=== PATIENT | female | born 1955 | race African-American/Black ===

== ENCOUNTER 2018-07-16 11:53 | Inpatient (IN) | payer MEDICARE ==
[~2018-07-16] VITALS: Ht 172.7 cm; Wt 117.9 kg
[2018-07-16 15:00] VITALS: BP 221/97
[2018-07-16] MEDS ORDERED: ROXICODONE5 MG ORAL (16:40)
[2018-07-16] MEDS ORDERED: DOCUSATE SODIU100 MG ORAL (16:40)
[2018-07-16] MEDS ORDERED: RESTORIL7.5 MG ORAL (16:40)
[2018-07-16] MEDS ORDERED: CATAPRES0.1 MG ORAL (16:40)
[2018-07-16] MEDS ORDERED: TRAMADOL HCL100 M2 ORAL (16:40)
[2018-07-16] MEDS ORDERED: FAMOTIDINE40 MG ORAL (16:40)
--- NOTE | 2018-07-16 16:59 | Consultation ---
Consult Note Consult Note transfered from [facility] Assessment/Plan Encephalopathy ?UTI ? Line sepsis, Picc line left upper arm stage 4 decub Obese Anemia HTN ?DM recent right knee surgery PCN Allergy IV Fluid Labs in am IV vanco IV Levaquin pain meds hold mind altering meds: Soma [place] Robaxin BP control check HgbA1c and TSH and lipids Per orders ID eval # [id number] Roe Mcghee MD Jul 16, 2018 16:59
[2018-07-16] MEDS ORDERED: Vancomycin 1 GM in D5W 275 ML IVPB SCH (18:00)
[2018-07-16] MEDS ORDERED: D5NS w/KCl 40mEq 1000ml 1,000 ML IV SCH (18:00)
[2018-07-16] MEDS: Docusate 100mg cap ORAL SCH (18:56)
[2018-07-16] MEDS ORDERED: Meropenem 1gm in NS 55ml IVPB SCH (19:30)
[2018-07-16] MEDS: HYDROmorphone 1mg/ml Carpuject IVP PRN (20:37)
[2018-07-16 20:58] VITALS: BP 198/104
[2018-07-16 22:00] VITALS: BP 174/85
--- NOTE | 2018-07-16 22:31 | Infectious Diseases Prog Note ---
Assessment/Plan Problems: (1) HCAP (healthcare-associated pneumonia) Assessment & Plan: with B/L basal infiltrates , rule out aspiration, will send sputum culture and start meropenem empirically , continue vancomycin to cover for possible MRSA, pending cultures (2) Pressure injury of sacral region, stage 4 Assessment & Plan: rule out underlying osteomyelitis, will order MRI of the sacrum , ESR and CRP , recommend surgical eval for possible skin flap in the future if no osteomyelitis (3) Sepsis Assessment & Plan: was on cefazolin for four weeks before , due to bacteremia , will start meropenem , and continue vancomycin empiric coverage for now . will order blood cultures x2 to confirm (4) Altered mental status Assessment & Plan: due to the above, continue antibiotics and hydration , monitor neuro status (5) UTI (urinary tract infection) Assessment & Plan: will start meropenem , pending urine culture results Subjective Allergies: Coded Allergies: PENICILLINS (Verified Allergy, Intermediate, 07/16/18) Objective Vital Signs Last 24 Hour Vital Signs Date Time Temp Pulse Resp B/P (MAP) Pulse Ox O2 Delivery O2 Flow Rate FiO2 07/16/18 21:07 97.5 07/16/18 21:00 99.1 78 20 100 99.1 07/16/18 20:37 97.5 07/16/18 20:37 198/104 07/16/18 18:56 81 221/97 07/16/18 15:44 Room Air 07/16/18 15:00 97.5 81 19 221/97 (138) 97 97.5 Height (Feet): 5 Height (Inches): 7.00 Weight (Pounds): 198 Laboratory Tests Test 07/16/18 17:30 C-Reactive Protein, Quantitative 7.4 mg/dL (0.00-0.90) H Current Medications Medications (Trade) Dose Ordered Sig/Dave Route PRN Reason Start Time Stop Time Status Last Admin Dose Admin Amlodipine Besylate (Norvasc) 10 mg DAILY ORAL 07/17/18 09:00 08/16/18 08:59 Clonidine HCl (Catapres Tab) 0.1 mg Q4H PRN ORAL bp over 160 syst 07/16/18 17:15 08/15/18 17:14 07/16/18 20:37 Dextrose/ Electrolytes 1,000 ml @ 50 mls/hr Q20H IV 07/16/18 18:00 08/15/18 17:59 07/16/18 18:58 Docusate Sodium (Colace) 100 mg THREE TIMES A DAY ORAL 07/16/18 18:00 08/15/18 17:59 07/16/18 18:56 Enoxaparin Sodium (Lovenox) 40 mg DAILY SUBQ 07/17/18 09:00 08/16/18 08:59 UNV Hydromorphone HCl (Dilaudid) 0.5 mg Q4H PRN IVP For Pain 07/16/18 17:15 07/23/18 17:14 07/16/18 20:37 Meropenem 1 gm/ Sodium Chloride 55 ml @ 110 mls/hr ONCE IVPB 07/16/18 19:30 07/16/18 23:59 07/16/18 20:45 Meropenem 1 gm/ Sodium Chloride 55 ml @ 110 mls/hr Q8HR IVPB 07/16/18 18:15 07/21/18 18:14 UNV Ondansetron HCl (Zofran) 4 mg Q6H PRN IVP Nausea & Vomiting 07/16/18 17:15 08/15/18 17:14 Pantoprazole (Protonix) 40 mg DAILY IVP 07/17/18 09:00 08/16/18 08:59 Temazepam (Restoril) 7.5 mg HSPRN PRN ORAL Insomnia 07/16/18 17:15 07/23/18 17:14 Vancomycin HCl 1 gm/Dextrose 275 ml @ 183.708 mls/hr ONCE IVPB 07/16/18 18:00 07/16/18 23:59 07/16/18 18:56 Jason Kong M.D. Jul 16, 2018 22:31
[2018-07-17] MEDS ORDERED: Dyna-Hex 2% Top Sol 2oz TOPIC SCH (00:45)
[2018-07-17] MEDS: HYDROmorphone 1mg/ml Carpuject IVP PRN ×3 (01:04→21:39)
[2018-07-17 04:00] VITALS: BP 134/62
[2018-07-17 05:53] LABS: BASOPHILS % (AUTO) 0.5 % (0.0-2.0); EOSINOPHILS % (AUTO) 1.9 % (0.0-3.0); HEMATOCRIT 30.2 % (37.0-47.0); HEMOGLOBIN 9.9 G/DL (12.0-16.0); LYMPHOCYTES % (AUTO) 21.5 % (20.0-45.0); MEAN CORPUSCULAR VOLUME 87 FL (80-99); MONOCYTES % (AUTO) 10.7 % (1.0-10.0); NEUTROPHILS % (AUTO) 65.5 % (45.0-75.0); PLATELET COUNT 321 K/UL (150-450); RED BLOOD COUNT 3.45 M/UL (4.20-5.40); RED CELL DISTRIBUTION WIDTH 13.7 % (11.6-14.8); WHITE BLOOD COUNT 8.8 K/UL (4.8-10.8)
[2018-07-17 06:14] LABS: APPEARANCE,URINE CLEAR; BILIRUBIN, URINE NEGATIVE (NEGATIVE); GLUCOSE, URINE (UA) NEGATIVE (NEGATIVE); KETONES,URINE 2+ (NEGATIVE); LEUKOCYTE ESTERASE ,URINE NEGATIVE (NEGATIVE); NITRITE,URINE NEGATIVE (NEGATIVE); PH,URINE 7 (4.5-8.0); PROTEIN,URINE 2+ (NEGATIVE); UROBILINOGEN,URINE NORMAL MG/DL (0.0-1.0)
[2018-07-17 06:15] LABS: COLOR,URINE YELLOW
[2018-07-17 06:23] LABS: ALANINE AMINOTRANSFERASE 7 U/L (12-78); ALBUMIN 2.2 G/DL (3.4-5.0); ALBUMIN/GLOBULIN RATIO 0.5 (1.0-2.7); ALKALINE PHOSPHATASE 102 U/L (46-116); ANION GAP 6 mmol/L (5-15); ASPARTATE AMINO TRANSFERASE 10 U/L (15-37); BILIRUBIN,TOTAL 0.3 MG/DL (0.2-1.0); CALCIUM 10.8 MG/DL (8.5-10.1); CARBON DIOXIDE 30 MMOL/L (21-32); CHLORIDE 109 MMOL/L (98-107); CHOLESTEROL 216 MG/DL (< 200); CREATININE 0.7 MG/DL (0.55-1.30); FERRITIN 445 NG/ML (8-388); GAMMA GLUTAMYL TRANSPEPTIDASE 34 U/L (5-85); HDL CHOLESTEROL 44 MG/DL (40-60); PHOSPHORUS 2.5 MG/DL (2.5-4.9); SODIUM 145 MMOL/L (136-145); TRIGLYCERIDES 82 MG/DL (30-150)
[2018-07-17 06:33] LABS: % IRON SATURATION 24 % (15-50); IRON 38 ug/dL (50-175); TOTAL IRON BINDING CAPACITY 161 ug/dL (250-450)
[2018-07-17 06:38] LABS: BLOOD UREA NITROGEN 9 mg/dL (7-18)
[2018-07-17] MEDS: Pantoprazole Inj IVP SCH (08:33)
[2018-07-17] MEDS: Docusate 100mg cap ORAL SCH ×3 (08:33→17:26)
[2018-07-17 09:00] VITALS: BP 154/83
[2018-07-17] MEDS ORDERED: Lactulose 20gm/30ml UDC ORAL SCH (09:00)
--- NOTE | 2018-07-17 10:09 | Nephrology Progress Note ---
Assessment/Plan Problem List: (1) Sepsis (2) Pressure injury of sacral region, stage 4 (3) Acute encephalopathy (4) Electrolyte abnormality (5) Anemia of chronic disease (6) Proteinuria Assessment Encephalopathy Electrolyte abnormalities Proteinuria ? Line sepsis, Picc line left upper arm stage 4 decub Basal Atx: Pneumonia Obese Anemia HTN ?DM recent right knee surgery PCN Allergy I Plan IV Fluid mag and K supplement on Meropenem per ID pain meds hold mind altering meds: Soma [place] Robaxin BP control HgbA1c and TSH and lipids results noted Per orders ID eval appreciated St eval: Rec PO to be started Subjective ROS Limited/Unobtainable: No Constitutional: Reports: malaise, other - less confused Objective Objective Last 24 Hour Vital Signs Date Time Temp Pulse Resp B/P (MAP) Pulse Ox O2 Delivery O2 Flow Rate FiO2 07/17/18 09:00 97.8 96 21 154/83 (106) 97 97.8 07/17/18 08:36 96 156/85 07/17/18 04:00 97.9 69 20 134/62 (86) 98 97.9 07/17/18 01:34 97.5 07/17/18 01:04 97.5 07/17/18 00:38 176/84 07/16/18 23:28 Room Air 07/16/18 22:00 77 174/85 (114) 07/16/18 21:00 99.1 78 20 100 99.1 07/16/18 20:58 198/104 (135) 07/16/18 20:37 97.5 07/16/18 20:37 198/104 07/16/18 18:56 81 221/97 07/16/18 15:44 Room Air 07/16/18 15:00 97.5 81 19 221/97 (138) 97 97.5 Intake and Output 07/16/18 07/17/18 19:00 07:00 Intake Total 830.000 ml Balance 830.000 ml Intake IV Total 830.000 ml # Voids 3 Laboratory Tests 07/16/18 17:30: C-Reactive Protein, Quantitative 7.4H 07/17/18 02:40: Urine Color Yellow, Urine Appearance Clear, Urine pH 7, Urine Specific [place] 1.015, Urine Protein 2+H, Urine Glucose (UA) Negative, Urine Ketones 2+H, Urine Blood Negative, Urine Nitrite Negative, Urine Bilirubin Negative, Urine Urobilinogen Normal, Urine Leukocyte Esterase Negative, Urine RBC 2-4H, Urine WBC 2-4, Urine Squamous Epithelial Cells Occasional, Urine Amorphous Sediment FewH, Urine Bacteria Few 07/17/18 05:00: White Blood Count 8.8, Red Blood Count 3.45L, Hemoglobin 9.9L, Hematocrit 30.2L , Mean Corpuscular Volume 87, Mean Corpuscular Hemoglobin 28.8, Mean Corpuscular Hemoglobin Concent 32.9, Red Cell Distribution Width 13.7, Platelet Count 321, Mean Platelet Volume 6.4L, Neutrophils (%) (Auto) 65.5, Lymphocytes ( %) (Auto) 21.5, Monocytes (%) (Auto) 10.7H, Eosinophils (%) (Auto) 1.9, Basophils (%) (Auto) 0.5, Sodium Level 145, Potassium Level 3.0L, Chloride Level 109H, Carbon Dioxide Level 30, Anion Gap 6, Blood Urea Nitrogen 9, Creatinine 0.7, Estimat Glomerular Filtration Rate > 60, Glucose Level 117H, Hemoglobin A1c 6.0, Uric Acid 4.3, Calcium Level 10.8H, Phosphorus Level 2.5, Magnesium Level 1.5L, Iron Level 38L, Total Iron Binding Capacity 161L, Percent Iron Saturation 24, Unsaturated Iron Binding 123, Ferritin 445H, Total Bilirubin 0.3, Gamma Glutamyl Transpeptidase 34, Aspartate Amino Transf (AST/ SGOT) 10L, Alanine Aminotransferase (ALT/SGPT) 7L, Alkaline Phosphatase 102, Pro -B-Type Natriuretic Peptide 223H, Total Protein 6.9, Albumin 2.2L, Globulin 4.7 , Albumin/Globulin Ratio 0.5L, Triglycerides Level 82, Cholesterol Level 216H, LDL Cholesterol 143H, HDL Cholesterol 44, Cholesterol/HDL Ratio 4.9H, Vitamin B12 Level 1113H, Folate 3.5L, Thyroid Stimulating Hormone (TSH) 3.292 Height (Feet): 5 Height (Inches): 7.00 Weight (Pounds): 198 General Appearance: no apparent distress, confused - but less than yesterday Cardiovascular: tachycardia Respiratory/Chest: decreased breath sounds Abdomen: distended Roe Mcghee MD Jul 17, 2018 10:09
[2018-07-17] MEDS: D5 1/2NS 1,000 ML IV SCH ×2 (10:51→21:50)
[2018-07-17 11:42] VITALS: BP 154/88
--- NOTE | 2018-07-17 12:03 | Consultation ---
History of Present Illness General Date patient seen: Jul 17, 2018 Reason for Consultation: Sepsis; stage IV Sacral wound Present Illness HPI 62 year old female with multiple medical comorbidities presented with altered mental status and admitted for care and management. Sepsis with etiology work up being performed. Upon admission noted to have sacral stage IV wound and right lower extremity prior surgical wound with sutures. Surgery called to evaluate and assist with care. patient seen, chart reviewed, patient examined. Allergies: Coded Allergies: PENICILLINS (Verified Allergy, Intermediate, 07/16/18) Medication History Scheduled Docusate Sodium* (Docusate Sodium*), 100 MG ORAL TWICE A DAY, (Reported) Famotidine (Famotidine), 40 MG ORAL EVERY 12 HOURS, (Reported) Temazepam* (Restoril*), 7.5 MG ORAL BEDTIME, (Reported) Scheduled PRN Clonidine Hcl* (Catapres*), 0.1 MG ORAL EVERY 6 HOURS PRN for For High Blood Pressure, (Reported) Oxycodone HCl (Oxycodone HCl), 5 MG ORAL Q4H PRN for For Pain, (Reported) Tramadol Hcl (Tramadol Hcl), 50 MG ORAL EVERY 6 HOURS PRN for Pain Scale (6-10), (Reported) Patient History History Provided By: Medical Record, PMD Healthcare decision maker N Resuscitation status Full Code Advanced Directive on File Past Medical/Surgical History Past Medical/Surgical History: (1) Pressure ulcer (2) Sepsis (3) Altered mental status (4) HCAP (healthcare-associated pneumonia) (5) Catheter-associated urinary tract infection (6) Pressure injury of sacral region, stage 4 Review of Systems All Other Systems: negative except mentioned in HPI Physical Exam General Appearance: no apparent distress Lines, tubes and drains: other HEENT: atraumatic Neck: normal inspection Respiratory/Chest: normal breath sounds, no respiratory distress, no accessory muscle use Cardiovascular/Chest: normal rate, regular rhythm Abdomen: normal bowel sounds, soft, no organomegaly, no mass Extremities: normal inspection, other Skin Exam: normal pigmentation, warm/dry Neurologic: alert Last 24 Hour Vital Signs Date Time Temp Pulse Resp B/P (MAP) Pulse Ox O2 Delivery O2 Flow Rate FiO2 07/17/18 11:14 97.8 07/17/18 09:00 97.8 96 21 154/83 (106) 97 97.8 07/17/18 08:36 96 156/85 07/17/18 04:00 97.9 69 20 134/62 (86) 98 97.9 07/17/18 01:34 97.5 07/17/18 01:04 97.5 07/17/18 00:38 176/84 07/16/18 23:28 Room Air 07/16/18 22:00 77 174/85 (114) 07/16/18 21:00 99.1 78 20 100 99.1 07/16/18 20:58 198/104 (135) 07/16/18 20:37 97.5 07/16/18 20:37 198/104 07/16/18 18:56 81 221/97 07/16/18 15:44 Room Air 07/16/18 15:00 97.5 81 19 221/97 (138) 97 97.5 Intake and Output 07/16/18 07/17/18 19:00 07:00 Intake Total 830.000 ml Balance 830.000 ml Intake IV Total 830.000 ml # Voids 3 Laboratory Tests Test 07/16/18 17:30 07/17/18 02:40 07/17/18 05:00 C-Reactive Protein, Quantitative 7.4 mg/dL (0.00-0.90) H Urine Color Yellow Urine Appearance Clear Urine pH 7 (4.5-8.0) Urine Specific [place] 1.015 (1.005-1.035) Urine Protein 2+ (NEGATIVE) H Urine Glucose (UA) Negative (NEGATIVE) Urine Ketones 2+ (NEGATIVE) H Urine Blood Negative (NEGATIVE) Urine Nitrite Negative (NEGATIVE) Urine Bilirubin Negative (NEGATIVE) Urine Urobilinogen Normal MG/DL (0.0-1.0) Urine Leukocyte Esterase Negative (NEGATIVE) Urine RBC 2-4 /HPF (0 - 2) H Urine WBC 2-4 /HPF (0 - 2) Urine Squamous Epithelial Cells Occasional /LPF Urine Amorphous Sediment Few /LPF (NONE) H Urine Bacteria Few /HPF (NONE) White Blood Count 8.8 K/UL (4.8-10.8) Red Blood Count 3.45 M/UL (4.20-5.40) L Hemoglobin 9.9 G/DL (12.0-16.0) L Hematocrit 30.2 % (37.0-47.0) L Mean Corpuscular Volume 87 FL (80-99) Mean Corpuscular Hemoglobin 28.8 PG (27.0-31.0) Mean Corpuscular Hemoglobin Concent 32.9 G/DL (32.0-36.0) Red Cell Distribution Width 13.7 % (11.6-14.8) Platelet Count 321 K/UL (150-450) Mean Platelet Volume 6.4 FL (6.5-10.1) L Neutrophils (%) (Auto) 65.5 % (45.0-75.0) Lymphocytes (%) (Auto) 21.5 % (20.0-45.0) Monocytes (%) (Auto) 10.7 % (1.0-10.0) H Eosinophils (%) (Auto) 1.9 % (0.0-3.0) Basophils (%) (Auto) 0.5 % (0.0-2.0) Sodium Level 145 MMOL/L (136-145) Potassium Level 3.0 MMOL/L (3.5-5.1) L Chloride Level 109 MMOL/L (98-107) H Carbon Dioxide Level 30 MMOL/L (21-32) Anion Gap 6 mmol/L (5-15) Blood Urea Nitrogen 9 mg/dL (7-18) Creatinine 0.7 MG/DL (0.55-1.30) Estimat Glomerular Filtration Rate > 60 mL/min (>60) Glucose Level 117 MG/DL (74-106) H Hemoglobin A1c 6.0 % (4.3-6.0) Uric Acid 4.3 MG/DL (2.6-7.2) Calcium Level 10.8 MG/DL (8.5-10.1) H Phosphorus Level 2.5 MG/DL (2.5-4.9) Magnesium Level 1.5 MG/DL (1.8-2.4) L Iron Level 38 ug/dL (50-175) L Total Iron Binding Capacity 161 ug/dL (250-450) L Percent Iron Saturation 24 % (15-50) Unsaturated Iron Binding 123 ug/dL (112-346) Ferritin 445 NG/ML (8-388) H Total Bilirubin 0.3 MG/DL (0.2-1.0) Gamma Glutamyl Transpeptidase 34 U/L (5-85) Aspartate Amino Transf (AST/SGOT) 10 U/L (15-37) L Alanine Aminotransferase (ALT/SGPT) 7 U/L (12-78) L Alkaline Phosphatase 102 U/L (46-116) Pro-B-Type Natriuretic Peptide 223 pg/mL (0-125) H Total Protein 6.9 G/DL (6.4-8.2) Albumin 2.2 G/DL (3.4-5.0) L Globulin 4.7 g/dL Albumin/Globulin Ratio 0.5 (1.0-2.7) L Triglycerides Level 82 MG/DL (30-150) Cholesterol Level 216 MG/DL (< 200) H LDL Cholesterol 143 mg/dL (<100) H HDL Cholesterol 44 MG/DL (40-60) Cholesterol/HDL Ratio 4.9 (3.3-4.4) H Vitamin B12 Level 1113 PG/ML (193-986) H Folate 3.5 NG/ML (8.6-58.9) L Thyroid Stimulating Hormone (TSH) 3.292 uiU/mL (0.358-3.740) Height (Feet): 5 Height (Inches): 7.00 Weight (Pounds): 198 Medications Current Medications Medications (Trade) Dose Ordered Sig/Dave Route PRN Reason Start Time Stop Time Status Last Admin Dose Admin Albuterol Sulfate (Proventil) 2.5 mg TIDRT HHN 07/17/18 13:00 07/22/18 12:59 Amlodipine Besylate (Norvasc) 10 mg DAILY ORAL 07/17/18 09:00 08/16/18 08:59 07/17/18 08:36 Chlorhexidine Gluconate (Mila-Hex 2%) 1 applic DAILY@2000 TOPIC 07/17/18 20:00 08/16/18 19:59 Clonidine HCl (Catapres Tab) 0.1 mg Q4H PRN ORAL bp over 160 syst 07/16/18 17:15 08/15/18 17:14 07/17/18 00:38 Dextrose/Sodium Chloride 1,000 ml @ 75 mls/hr [id number] IV 07/17/18 08:30 08/16/18 08:29 07/17/18 10:51 Docusate Sodium (Colace) 100 mg THREE TIMES A DAY ORAL 9/13/18 18:00 08/15/18 17:59 07/17/18 08:33 Enoxaparin Sodium (Lovenox) 40 mg DAILY SUBQ 07/17/18 09:00 08/16/18 08:59 UNV Folic Acid (Folate) 2 mg DAILY ORAL 07/17/18 09:00 08/16/18 08:59 07/17/18 08:33 Hydromorphone HCl (Dilaudid) 0.5 mg Q4H PRN IVP For Pain 07/16/18 17:15 07/23/18 17:14 07/17/18 11:14 Meropenem 1 gm/ Sodium Chloride 55 ml @ 110 mls/hr Q8HR IVPB 07/16/18 18:15 07/21/18 18:14 UNV Ondansetron HCl (Zofran) 4 mg Q6H PRN IVP Nausea & Vomiting 07/16/18 17:15 08/15/18 17:14 Pantoprazole (Protonix) 40 mg DAILY IVP 07/17/18 09:00 08/16/18 08:59 07/17/18 08:33 Potassium Chloride 100 ml @ 100 mls/hr Q1HR IVPB 07/17/18 09:00 07/17/18 12:59 07/17/18 10:57 Silver Nitrate (Silver Nitrate Applicators) 1 applic DAILY TOPIC 07/17/18 10:45 07/20/18 10:44 Temazepam (Restoril) 7.5 mg HSPRN PRN ORAL Insomnia 07/16/18 17:15 07/23/18 17:14 Assessment/Plan Problem List: (1) Pressure injury of sacral region, stage 4 Assessment & Plan: 62F with stage IV full thickness pressure injury to sacral area. (L)0.4cm x(W)0.9cm x (D)0.6cm . (+)Epibole ,(+) maceration. Minimal sanguineous exudate noted. Periwound scarring with skin hyperpigmentation. no Odor Per history obtained from pt wound is a historical stage four pressure injury x15 years with recurrent openings over the years. Pt stated she has had NPWT therapy in the past for closure and also skin graft/ flap. Right knee immobilizer with prior surgical sutures noted R knee and incision is well approximated,clean and dry Wounds present on admission. Seems to have good care prior and currently stable. -No acute surgical intervention indicated. -Cleanse sacral wound with Saline.Pat dry.Apply Cavilon wipes to borders and periwound .Apply Triad to wound and cover with Biatain drsg. -Surface support mat on bed . -Encourage and assist pt to reposition side to side at least every 2hours as tolerated. thank you for this consultation. will follow with recs. ICD Codes: L89.154 - Pressure ulcer of sacral region, stage 4 SNOMED: [id number], [id number] Eliot Baig Jul 17, 2018 12:03
[2018-07-17] MEDS: Albuterol ud Inhalation HHN SCH ×2 (13:00→19:44)
[2018-07-17] MEDS: Silver Nitrate Stick TOPIC SCH (13:04)
[2018-07-17 15:28] VITALS: BP 170/91
[2018-07-17] MEDS ORDERED: Vancomycin 1500mg IVPB SCH (15:30)
[2018-07-17] MEDS: Meropenem 1 GM in NS 55 ML IVPB SCH ×2 (15:32→21:06)
[2018-07-17] MEDS: Enoxaparin 40mg Inj SUBQ SCH (15:33)
--- NOTE | 2018-07-17 15:38 | Diagnostic Imaging Report ---
Indication: Cough, chest pain Technique: One view of the chest Comparison: none Findings: Heart is enlarged. There is mild interstitial congestion. No focal airspace consolidation. Pleural spaces are clear Impression: Cardiomegaly. Bilateral interstitial congestion, likely mild congestive heart failure
--- NOTE | 2018-07-17 16:02 | Diagnostic Imaging Report ---
Indication: Chronic stage IV wound near sacrum Technique: Sagittal T1 fast spin echo and STIR, axial T1, axial STIR images obtained through the sacrum. Patient unable to tolerate further imaging Comparison: none Findings: Exam is limited as only limited number of sequences are available. There is some edema of the subcutaneous fat of the upper buttock region, in particular surrounding the intergluteal fold. No abnormal marrow signal to suggest acute osteomyelitis is demonstrated. There is degenerative spondylosis of the lower lumbar spine, in particular at L4-5, possibly resulting in significant spinal stenosis at this level. The rectum is distended with stool Impression: No evidence of acute osteomyelitis Evidence of soft tissue edema, consistent with stated clinical history Degenerative disc disease at L4-5, possibly resulting in significant spinal stenosis Possible mild rectal fecal impaction
[2018-07-17 20:00] VITALS: BP 171/86
[2018-07-17] MEDS: Dyna-Hex 2% Top Sol 2oz TOPIC SCH (21:06)
--- NOTE | 2018-07-17 22:30 | Consultation ---
DATE OF CONSULTATION: 07/17/2018 INFECTIOUS DISEASE CONSULTATION REQUESTING PHYSICIAN: Roe Mcghee M.D. REASON FOR CONSULTATION: Bilateral pneumonia, sepsis, urinary tract infection, and chronic sacral pressure wound with possible underlying osteomyelitis. Recommendation for antibiotics treatment. HISTORY OF PRESENT ILLNESS: Ms. Benitez Luu is a 62-year-old female with past medical history of stage IV sacral wound. She had it for almost 15 years after prolonged hospital stay, presented from [facility] to [facility] with altered mental status and sepsis. The patient was found to have pneumonia on lung image and urine tract infection. She also had a chronic sacral pressure wound stage IV with right lower extremity prior surgical wound with sutures, so Infectious Disease consultation was requested for antibiotics treatment and further management of her sepsis, pneumonia, urinary tract infection, and sacral pressure wound with possible underlying osteomyelitis. As per patient, she had a chronic pain in the sacral area, which never went away. Her sacral pressure wound has been there for almost 15 years. It became smaller, but still deep all the way down that the bone can be seen through. No significant drainage or foul smell as per the patient. She denied any fever or chills. She does not recall why she was admitted to [facility] to start with. REVIEW OF SYSTEMS: A 14-point of system reviewed were all negative apart from the one I mentioned above in my History and Physical. PAST MEDICAL HISTORY: Significant for sacral pressure wound stage IV, hypertension, and chronic pain. PAST SURGICAL HISTORY: Not on record. FAMILY HISTORY: Negative and noncontributory. SOCIAL HISTORY: The patient lives at home. No recent drugs, tobacco, or alcohol. ALLERGIES: She is allergic to penicillin unclear what kind of reaction. MEDICATIONS: She is on vancomycin and levofloxacin. For the rest of her medications, please refer to MAR. LABORATORIES: Not available currently. The patient just got transferred. IMAGING: None on record here yet. PHYSICAL EXAMINATION: VITAL SIGNS: Temperature 97.5, pulse 81, respirations 19, blood pressure 221/97, pulse ox 97% on room air. GENERAL: Middle-aged female, obese. Lying in bed, awake, alert, not in acute distress. HEENT: Normocephalic and atraumatic. Pupils reactive to light equally. Moist oral mucosa. No exudate. NECK: Supple. No lymphadenopathy. CARDIOVASCULAR: Regular rate and rhythm. No murmur or gallop. LUNGS EXAM: She had diminished breathing sounds at the bases with crackles. Normal breathing effort. No rhonchi. No wheezing. ABDOMEN: Soft, obese, nontender, and nondistended. Normal bowel sounds. No hepatosplenomegaly or ascites. EXTREMITIES: Trace edema. No cyanosis. The thigh surgical wound with suture. Skin, no rash. No hives. Sacral pressure wound stage IV. ASSESSMENT AND RECOMMENDATION: 1. Healthcare-acquired pneumonia with bilateral basal infiltrates, rule out aspiration. We will send sputum culture if she produces any. We will start meropenem empiric coverage. Continue vancomycin to cover for possible MRSA pending culture results. 2. Pressure injury of the sacral region stage IV, rule out underlying osteomyelitis. We will order MRI of the sacrum, sedimentation rate, and C-reactive protein. Recommend surgical evaluation for possible skin flap in the future . 3. Sepsis due to the above. We will start meropenem and continue vancomycin empiric coverage. We will order blood culture x2. 4. Altered mental status due to the above. Continue antibiotics and hydration. Monitor neuro status. Consult neuro if no improvement. 5. Urinary tract infection. We will start meropenem pending urine culture results. Continue Glass care. Discontinue as soon as possible. Thank you for the consult. ID will continue to follow. Jason Kong M.D. DR: OREN JOB#: [id number] CC:
--- NOTE | 2018-07-17 23:45 | History and Physical Report ---
DATE OF ADMISSION: 07/16/2018 The patient was seen in the afternoon of July 16, 2018, in room 403. HISTORY OF PRESENT ILLNESS: The patient is a 62-year-old female, who apparently has been under the care of Dr. Talon Uriostegui, and she was living in a mcc and she was sent for evaluation of altered level of consciousness to [facility]. After initial evaluation in the emergency room, the patient was initially diagnosed with an underlying infection, possibly UTI and subsequently transferred here to [place] for further management. The patient is very confused and cannot give any history. However according to the records available, the patient had a recent right knee surgery a few weeks ago for which she was receiving Ancef for related infection. The patient has a PICC line in the left upper arm. The patient is obese and appears to have history of hypertension. PHYSICAL EXAMINATION: VITAL SIGNS: When seen yesterday, the blood pressure was 221/97, temperature 97.5, pulse rate 81, and respiratory rate 19. GENERAL: The patient was very confused and asking for her mother. HEENT: Head, normocephalic. Sclerae not icteric. NECK: No thyromegaly. LUNGS: Decreased breath sounds over the bases. HEART: Distant, regular with a rate of 81. ABDOMEN: Very obese. EXTREMITIES: Over the left upper arm, a PICC line. Right knee, scar of the surgery on the right knee. LABORATORY DATA: Laboratory data all available from [place], which indicates hypokalemia and anemia for the patient. No other laboratories available here at [place] as the patient just arrived. IMPRESSION: 1. A 62-year-old female with encephalopathy most likely underlying infection, which may be related to the line sepsis, pneumonia since the patient has basal atelectasis and/or UTI. The patient have electrolyte abnormalities in the form of significant hypokalemia. The patient have stage 4 decubitus over the lower back. The patient is obese. 2. Anemia. 3. Hypertension, out of control. 4. Diabetes mellitus. 5. Recent right knee surgery. 6. Penicillin allergy. PLAN: The patient will be kept NPO and off mind-altering medication. Meropenem has been started. IV evaluation will be called. Magnesium and potassium supplements, blood pressure control. We will check the laboratories for tomorrow morning. Anemia work up. ST evaluation and surgical evaluation of the low back decubitus. According to how the patient's condition evolves, we will make the proper changes in our future management. Roe Mcghee M.D. DR: PHOEBE JOB#: [id number] CC:
[2018-07-18] VITALS: BP 159/77
[2018-07-18] MEDS: HYDROmorphone 1mg/ml Carpuject IVP PRN ×3 (01:50→22:26)
[2018-07-18] MEDS ORDERED: Vancomycin 1250mg/D5W 250ml IVPB SCH (03:00)
[2018-07-18 04:00] VITALS: BP 136/63
[2018-07-18] MEDS: Meropenem 1 GM in NS 55 ML IVPB SCH (05:53)
[2018-07-18] MEDS: D5 1/2NS 1,000 ML IV SCH ×3 (06:30→22:27)
[2018-07-18] MEDS: Albuterol ud Inhalation HHN SCH ×3 (07:38→19:34)
[2018-07-18 08:00] VITALS: BP 147/76
[2018-07-18] MEDS: Pantoprazole Inj IVP SCH (08:27)
[2018-07-18] MEDS: Docusate 100mg cap ORAL SCH ×3 (08:28→17:11)
[2018-07-18] MEDS: Enoxaparin 40mg Inj SUBQ SCH (08:33)
--- NOTE | 2018-07-18 09:22 | General Surgery Progress Note ---
General Surgery-Progress Note Subjective Additional Comments no acute events. doing well. comfortable. Objective Last 24 Hour Vital Signs Date Time Temp Pulse Resp B/P (MAP) Pulse Ox O2 Delivery O2 Flow Rate FiO2 07/18/18 08:28 76 147/76 07/18/18 08:00 98.6 76 21 147/76 (99) 96 98.6 07/18/18 07:54 Room Air 07/18/18 07:46 70 16 100 Room Air 21 07/18/18 07:38 68 16 98 Room Air 21 07/18/18 04:00 98.6 70 18 136/63 (87) 96 98.6 07/18/18 00:00 98.7 75 20 159/77 (104) 95 98.7 07/17/18 21:00 Room Air 07/17/18 20:00 98.2 81 19 171/86 (114) 95 98.2 07/17/18 19:28 72 18 100 Room Air 21 07/17/18 19:21 36 07/17/18 19:21 78 18 100 Room Air 21 07/17/18 19:09 170/91 07/17/18 19:02 74 18 Room Air 21 07/17/18 15:28 98.6 83 20 170/91 (117) 97 98.6 07/17/18 11:44 98.2 07/17/18 11:42 98.2 73 21 154/88 (110) 95 98.2 07/17/18 11:14 97.8 I&O Intake and Output 07/17/18 07/18/18 19:00 07:00 Intake Total 1789 ml 960.000 ml Output Total 850 ml Balance 1789 ml 110.000 ml Intake Oral 720 ml IV Total 1069 ml 960.000 ml Output Urine Total 850 ml # Bowel Movements 1 Dressing: other Wound: other Drains: other Cardiovascular: RSR Respiratory: clear Abdomen: soft, flat, non-tender, present bowel sounds Extremities: no cyanosis Plan Problems: (1) Pressure injury of sacral region, stage 4 Assessment & Plan: 62F with stage IV full thickness pressure injury to sacral area. (L)0.4cm x(W)0.9cm x (D)0.6cm . (+)Epibole ,(+) maceration. Minimal sanguineous exudate noted. Periwound scarring with skin hyperpigmentation. no Odor Per history obtained from pt wound is a historical stage four pressure injury x15 years with recurrent openings over the years. Pt stated she has had NPWT therapy in the past for closure and also skin graft/ flap. Right knee immobilizer with prior surgical sutures noted R knee and incision is well approximated,clean and dry Wounds present on admission. Seems to have good care prior and currently stable. -No acute surgical intervention indicated. -Cleanse sacral wound with Saline.Pat dry.Apply Cavilon wipes to borders and periwound .Apply Triad to wound and cover with Biatain drsg. apply silver nitrate daily for 3 days. -Surface support mat on bed . -Encourage and assist pt to reposition side to side at least every 2hours as tolerated. -will plan to remove right leg surgical sutures tomorrow. thank you for this consultation. will follow with recs. Eliot Baig Jul 18, 2018 09:22
[2018-07-18] MEDS ORDERED: Fleet's Enema 133ml RECTAL SCH (09:45)
[2018-07-18] MEDS: Silver Nitrate Stick TOPIC SCH (09:58)
[2018-07-18] MEDS ORDERED: Tubing IV Secondary IV ONE (10:53)
[2018-07-18] MEDS ORDERED: D5 1/2NS 1000ml IV ONE (10:53)
[2018-07-18 12:00] VITALS: BP 144/80
[2018-07-18] MEDS ORDERED: Potassium Chloride 40 MEQ in Sodium Chloride 500ML 550 ML IVPB SCH (12:30)
--- NOTE | 2018-07-18 12:30 | Nephrology Progress Note ---
Assessment/Plan Problem List: (1) Sepsis (2) Pressure injury of sacral region, stage 4 (3) Acute encephalopathy (4) Electrolyte abnormality (5) Anemia of chronic disease (6) Proteinuria Assessment Encephalopathy clearing Electrolyte abnormalities Proteinuria ? Line sepsis, Picc line left upper arm stage 4 decub Basal Atx: Pneumonia Obese Anemia HTN ?DM recent right knee surgery PCN Allergy I Plan No labs today- IV Fluid mag and K supplement as needed on Meropenem per ID pain meds hold mind altering meds: Soma [place] Robaxin BP control HgbA1c and TSH and lipids results noted Per orders ID eval appreciated St eval: Rec PO to be started HHN Subjective ROS Limited/Unobtainable: No Constitutional: Reports: other - stronger Objective Objective Last 24 Hour Vital Signs Date Time Temp Pulse Resp B/P (MAP) Pulse Ox O2 Delivery O2 Flow Rate FiO2 07/18/18 12:00 98.4 74 18 144/80 (101) 96 98.4 07/18/18 08:28 76 147/76 07/18/18 08:00 98.6 76 21 147/76 (99) 96 98.6 07/18/18 07:54 Room Air 07/18/18 07:46 70 16 100 Room Air 21 07/18/18 07:38 68 16 98 Room Air 21 07/18/18 04:00 98.6 70 18 136/63 (87) 96 98.6 07/18/18 00:00 98.7 75 20 159/77 (104) 95 98.7 07/17/18 21:00 Room Air 07/17/18 20:00 98.2 81 19 171/86 (114) 95 98.2 07/17/18 19:28 72 18 100 Room Air 21 07/17/18 19:21 36 07/17/18 19:21 78 18 100 Room Air 21 07/17/18 19:09 170/91 07/17/18 19:02 74 18 Room Air 21 07/17/18 15:28 98.6 83 20 170/91 (117) 97 98.6 Intake and Output 07/17/18 07/18/18 19:00 07:00 Intake Total 1789 ml 960.000 ml Output Total 850 ml Balance 1789 ml 110.000 ml Intake Oral 720 ml IV Total 1069 ml 960.000 ml Output Urine Total 850 ml # Bowel Movements 1 Height (Feet): 5 Height (Inches): 8.00 Weight (Pounds): 260 General Appearance: other - mind more clear Cardiovascular: normal rate Respiratory/Chest: decreased breath sounds Abdomen: soft Extremities: other - surgical scar knee clean Roe Mcghee MD Jul 18, 2018 12:30
[2018-07-18] MEDS: Norco 5mg/325mg tab ORAL PRN ×2 (12:44→17:11)
--- NOTE | 2018-07-18 13:50 | Infectious Diseases Prog Note ---
Assessment/Plan Problems: (1) HCAP (healthcare-associated pneumonia) Assessment & Plan: with B/L interstitial infiltrates, on meropenem empirically , and vancomycin to cover for possible MRSA, unfortunately blood cultures was not done when I ordered it , neither urine culture . will stop vancomycin and meropenem and monitor clinically, will resume her cefazolin as planned before till 08/04/18 (2) Pressure injury of sacral region, stage 4 Assessment & Plan: with no evidence of underlying osteomyelitis or soft tissue abscess as per MRI of the sacrum , may benefit from skin flap in the future . continue local wound care as per hospital protocol . follow up with plastic surgery (3) Sepsis Assessment & Plan: due to the above, will start meropenem , and continue vancomycin empiric coverage . will order blood cultures x2 (4) Altered mental status Assessment & Plan: due to the above, improved with antibiotics and hydration, monitor neuro status (5) UTI (urinary tract infection) Assessment & Plan: S/P meropenem for three days , urine culture was not done . Subjective Constitutional: Reports: no symptoms HEENT: Reports: no symptoms Respiratory: Reports: no symptoms Breasts: Reports: no symptoms Cardiovascular: Reports: no symptoms Gastrointestinal/Abdominal: Reports: no symptoms Genitourinary: Reports: no symptoms Neurologic: Reports: no symptoms Psychiatric: Reports: no symptoms Skin: Reports: no symptoms Endocrine: Reports: no symptoms Hematologic: Reports: no symptoms Musculoskeletal: Reports: no symptoms Allergies: Coded Allergies: PENICILLINS (Verified Allergy, Intermediate, 07/16/18) Subjective she was lying in bed comfortable, getting nebulizer treatment, comfortable, no complaints Objective Vital Signs Last 24 Hour Vital Signs Date Time Temp Pulse Resp B/P (MAP) Pulse Ox O2 Delivery O2 Flow Rate FiO2 07/18/18 13:25 75 16 99 Room Air 21 07/18/18 13:16 72 16 97 Room Air 21 07/18/18 12:00 98.4 74 18 144/80 (101) 96 98.4 07/18/18 08:28 76 147/76 07/18/18 08:00 98.6 76 21 147/76 (99) 96 98.6 07/18/18 07:54 Room Air 07/18/18 07:46 70 16 100 Room Air 21 07/18/18 07:38 68 16 98 Room Air 21 07/18/18 04:00 98.6 70 18 136/63 (87) 96 98.6 07/18/18 00:00 98.7 75 20 159/77 (104) 95 98.7 07/17/18 21:00 Room Air 07/17/18 20:00 98.2 81 19 171/86 (114) 95 98.2 07/17/18 19:28 72 18 100 Room Air 21 07/17/18 19:21 36 07/17/18 19:21 78 18 100 Room Air 21 07/17/18 19:09 170/91 07/17/18 19:02 74 18 Room Air 21 07/17/18 15:28 98.6 83 20 170/91 (117) 97 98.6 Height (Feet): 5 Height (Inches): 8.00 Weight (Pounds): 260 General Appearance: WD/WN, no acute distress HEENT: normocephalic, atraumatic, anicteric, mucous membranes moist, PERRL, EOMI, pharynx normal, supple, no JVD Respiratory/Chest: chest wall non-tender, lungs clear, normal breath sounds, no respiratory distress, no accessory muscle use Cardiovascular: normal peripheral pulses, normal rate, regular rhythm, no gallop/murmur, no JVD Abdomen: normal bowel sounds, soft, non tender, no organomegaly, non distended , no mass, no scars Extremities: no cyanosis, no clubbing Skin: no rash, no lesions, no ulcers Neurologic/Psychiatric: alert, oriented x 3, responsive Lymphatic: no neck adenopathy, no groin adenopathy Musculoskeletal: normal muscle bulk, no effusion Current Medications Medications (Trade) Dose Ordered Sig/Dave Route PRN Reason Start Time Stop Time Status Last Admin Dose Admin Acetaminophen (Tylenol) 650 mg Q4H PRN ORAL Mild Pain/Temp > 100.5 07/18/18 12:15 08/17/18 12:14 Acetaminophen/ Hydrocodone Bitart ([place] 5/325) 1 tab Q4H PRN ORAL Moderate Pain (Pain Scale 4-6) 07/18/18 12:15 07/25/18 12:14 07/18/18 12:44 Albuterol Sulfate (Proventil) 2.5 mg TIDRT HHN 07/17/18 13:00 07/22/18 12:59 07/18/18 13:16 Amlodipine Besylate (Norvasc) 10 mg DAILY ORAL 07/17/18 09:00 08/16/18 08:59 07/18/18 08:28 Chlorhexidine Gluconate (Mila-Hex 2%) 1 applic DAILY@2000 TOPIC 07/17/18 20:00 08/16/18 19:59 07/17/18 21:06 Clonidine HCl (Catapres Tab) 0.1 mg Q4H PRN ORAL bp over 160 syst 07/16/18 17:15 08/15/18 17:14 07/17/18 19:09 Dextrose/Sodium Chloride 1,000 ml @ 75 mls/hr [id number] IV 07/17/18 08:30 08/16/18 08:29 07/18/18 06:30 Docusate Sodium (Colace) 100 mg THREE TIMES A DAY ORAL 07/16/18 18:00 08/15/18 17:59 07/18/18 12:44 Enoxaparin Sodium (Lovenox) 40 mg DAILY SUBQ 07/17/18 15:00 08/16/18 14:59 07/18/18 08:33 Folic Acid (Folate) 2 mg DAILY ORAL 07/17/18 09:00 08/16/18 08:59 07/18/18 08:27 Hydromorphone HCl (Dilaudid) 0.5 mg Q4H PRN IVP For Pain 07/16/18 17:15 07/23/18 17:14 07/18/18 08:35 Magnesium Sulfate 100 ml @ 100 mls/hr Q1H IVPB 07/18/18 12:45 07/18/18 14:44 07/18/18 13:07 Meropenem 1 gm/ Sodium Chloride 55 ml @ 110 mls/hr Q8HR IVPB 07/17/18 14:30 07/22/18 14:29 07/18/18 05:53 Ondansetron HCl (Zofran) 4 mg Q6H PRN IVP Nausea & Vomiting 07/16/18 17:15 08/15/18 17:14 Pantoprazole (Protonix) 40 mg DAILY ORAL 07/19/18 09:00 08/18/18 08:59 Potassium Chloride 40 meq/ Sodium Chloride 570 ml @ 142.5 mls/ hr ONCE IVPB 07/18/18 12:30 07/18/18 17:00 07/18/18 12:48 Potassium Chloride (K-Dur) 40 meq DAILY ORAL 07/18/18 12:30 08/17/18 12:29 07/18/18 12:47 Silver Nitrate (Silver Nitrate Applicators) 1 applic DAILY TOPIC 07/17/18 10:45 07/20/18 10:44 07/18/18 09:58 Temazepam (Restoril) 7.5 mg HSPRN PRN ORAL Insomnia 07/16/18 17:15 07/23/18 17:14 Vancomycin HCl/ Dextrose 250 ml @ 166.667 mls/hr Q12H IVPB 07/18/18 03:00 07/23/18 02:59 07/18/18 02:16 Jason Kong M.D. Jul 18, 2018 13:50
[2018-07-18 16:00] VITALS: BP 158/77
[2018-07-18 20:00] VITALS: BP 145/63
[2018-07-18] MEDS: Dyna-Hex 2% Top Sol 2oz TOPIC SCH (20:21)
[2018-07-19] VITALS: BP 150/70
[2018-07-19] MEDS: HYDROmorphone 1mg/ml Carpuject IVP PRN (01:59)
[2018-07-19 04:00] VITALS: BP 137/65
[2018-07-19 07:16] LABS: BASOPHILS % (AUTO) 0.8 % (0.0-2.0); EOSINOPHILS % (AUTO) 2.8 % (0.0-3.0); HEMATOCRIT 29.4 % (37.0-47.0); HEMOGLOBIN 9.4 G/DL (12.0-16.0); LYMPHOCYTES % (AUTO) 29.4 % (20.0-45.0); MEAN CORPUSCULAR VOLUME 88 FL (80-99); MONOCYTES % (AUTO) 9.8 % (1.0-10.0); NEUTROPHILS % (AUTO) 57.2 % (45.0-75.0); PLATELET COUNT 272 K/UL (150-450); RED BLOOD COUNT 3.35 M/UL (4.20-5.40); RED CELL DISTRIBUTION WIDTH 14.2 % (11.6-14.8); WHITE BLOOD COUNT 8.7 K/UL (4.8-10.8)
[2018-07-19 07:18] LABS: ALANINE AMINOTRANSFERASE 7 U/L (12-78); ALBUMIN 2.1 G/DL (3.4-5.0); ALBUMIN/GLOBULIN RATIO 0.5 (1.0-2.7); ALKALINE PHOSPHATASE 95 U/L (46-116); ANION GAP 6 mmol/L (5-15); ASPARTATE AMINO TRANSFERASE 9 U/L (15-37); BILIRUBIN,TOTAL 0.3 MG/DL (0.2-1.0); BLOOD UREA NITROGEN 7 mg/dL (7-18); CALCIUM 10.1 MG/DL (8.5-10.1); CARBON DIOXIDE 27 MMOL/L (21-32); CHLORIDE 108 MMOL/L (98-107); CREATININE 0.6 MG/DL (0.55-1.30); PHOSPHORUS 2.7 MG/DL (2.5-4.9); POTASSIUM 3.6 MMOL/L (3.5-5.1); SODIUM 141 MMOL/L (136-145)
[2018-07-19 08:00] VITALS: BP 173/78
[2018-07-19] MEDS: Docusate 100mg cap ORAL SCH ×3 (08:10→17:02)
[2018-07-19] MEDS: Albuterol ud Inhalation HHN SCH ×3 (08:12→20:32)
[2018-07-19] MEDS: Silver Nitrate Stick TOPIC SCH (08:19)
[2018-07-19] MEDS: Norco 5mg/325mg tab ORAL PRN ×3 (08:19→20:32)
[2018-07-19] MEDS: Enoxaparin 40mg Inj SUBQ SCH (08:21)
--- NOTE | 2018-07-19 10:43 | Nephrology Progress Note ---
Assessment/Plan Problem List: (1) Sepsis (2) Pressure injury of sacral region, stage 4 (3) Acute encephalopathy (4) Electrolyte abnormality (5) Anemia of chronic disease (6) Proteinuria Assessment Encephalopathy clearing Electrolyte abnormalities Proteinuria ? Line sepsis, Picc line left upper arm stage 4 decub Basal Atx: Pneumonia Obese Anemia HTN ?DM recent right knee surgery PCN Allergy I Plan IV Fluid mag and K supplement as needed off antibiotics- pain meds hold mind altering meds: Soma [place] Robaxin BP control HgbA1c and TSH and lipids results noted Per orders ID eval appreciated St eval: Rec PO to be started HHN plan to DC in am Subjective ROS Limited/Unobtainable: No Objective Objective Last 24 Hour Vital Signs Date Time Temp Pulse Resp B/P (MAP) Pulse Ox O2 Delivery O2 Flow Rate FiO2 07/19/18 08:49 97.9 07/19/18 08:21 79 16 100 Room Air 07/19/18 08:19 97.9 07/19/18 08:19 71 173/78 07/19/18 08:10 70 16 98 Room Air 07/19/18 08:00 Room Air 07/19/18 08:00 98.8 71 19 173/78 (109) 97 98.8 07/19/18 04:00 97.9 65 20 137/65 (89) 97 97.9 07/19/18 00:00 98.3 70 20 150/70 (96) 96 98.3 07/18/18 21:00 Room Air 07/18/18 20:00 98.5 75 19 145/63 (90) 100 98.5 07/18/18 19:38 77 16 100 Room Air 07/18/18 19:35 77 16 98 Room Air 07/18/18 16:00 98.4 82 18 158/77 (104) 96 98.4 07/18/18 13:25 75 16 99 Room Air 07/18/18 13:16 72 16 97 Room Air 07/18/18 12:00 98.4 74 18 144/80 (101) 96 98.4 Intake and Output 07/18/18 07/19/18 19:00 07:00 Intake Total 1857.5 ml 765 ml Output Total 425 ml Balance 1857.5 ml 340 ml Intake Oral 480 ml 240 ml IV Total 1377.5 ml 525 ml Output Urine Total 425 ml Laboratory Tests 07/19/18 06:18: White Blood Count 8.7, Red Blood Count 3.35L, Hemoglobin 9.4L, Hematocrit 29.4L , Mean Corpuscular Volume 88, Mean Corpuscular Hemoglobin 28.0, Mean Corpuscular Hemoglobin Concent 32.0, Red Cell Distribution Width 14.2, Platelet Count 272, Mean Platelet Volume 6.9, Neutrophils (%) (Auto) 57.2, Lymphocytes (% ) (Auto) 29.4, Monocytes (%) (Auto) 9.8, Eosinophils (%) (Auto) 2.8, Basophils ( %) (Auto) 0.8, Erythrocyte Sedimentation Rate 96H, Sodium Level 141, Potassium Level 3.6, Chloride Level 108H, Carbon Dioxide Level 27, Anion Gap 6, Blood Urea Nitrogen 7, Creatinine 0.6, Estimat Glomerular Filtration Rate > 60, Glucose Level 103, Calcium Level 10.1, Phosphorus Level 2.7, Magnesium Level 1.7L, Total Bilirubin 0.3, Aspartate Amino Transf (AST/SGOT) 9L, Alanine Aminotransferase (ALT/SGPT) 7L, Alkaline Phosphatase 95, C-Reactive Protein, Quantitative 3.7H, Total Protein 6.3L, Albumin 2.1L, Globulin 4.2, Albumin/ Globulin Ratio 0.5L Height (Feet): 5 Height (Inches): 8.00 Weight (Pounds): 260 General Appearance: no apparent distress Cardiovascular: regular rhythm Respiratory/Chest: lungs clear Abdomen: soft Neurologic: other - mind clearer Roe Mcghee MD Jul 19, 2018 10:42
--- NOTE | 2018-07-19 11:09 | General Surgery Progress Note ---
General Surgery-Progress Note Subjective Additional Comments no acute events. states she feels well. no n/v/f/c. comfortable. Objective Last 24 Hour Vital Signs Date Time Temp Pulse Resp B/P (MAP) Pulse Ox O2 Delivery O2 Flow Rate FiO2 07/19/18 08:49 97.9 07/19/18 08:21 79 16 100 Room Air 21 07/19/18 08:19 97.9 07/19/18 08:19 71 173/78 07/19/18 08:10 70 16 98 Room Air 07/19/18 08:00 Room Air 07/19/18 08:00 98.8 71 19 173/78 (109) 97 98.8 07/19/18 04:00 97.9 65 20 137/65 (89) 97 97.9 07/19/18 00:00 98.3 70 20 150/70 (96) 96 98.3 07/18/18 21:00 Room Air 07/18/18 20:00 98.5 75 19 145/63 (90) 100 98.5 07/18/18 19:38 77 16 100 Room Air 07/18/18 19:35 77 16 98 Room Air 07/18/18 16:00 98.4 82 18 158/77 (104) 96 98.4 07/18/18 13:25 75 16 99 Room Air 07/18/18 13:16 72 16 97 Room Air 07/18/18 12:00 98.4 74 18 144/80 (101) 96 98.4 I&O Intake and Output 07/18/18 07/19/18 19:00 07:00 Intake Total 1857.5 ml 765 ml Output Total 425 ml Balance 1857.5 ml 340 ml Intake Oral 480 ml 240 ml IV Total 1377.5 ml 525 ml Output Urine Total 425 ml Wound: clean, dry Drains: none Cardiovascular: RSR Respiratory: clear Abdomen: soft, flat, non-tender, present bowel sounds Extremities: no tenderness, no cyanosis Laboratory Tests Test 07/19/18 06:18 White Blood Count 8.7 K/UL (4.8-10.8) Red Blood Count 3.35 M/UL (4.20-5.40) L Hemoglobin 9.4 G/DL (12.0-16.0) L Hematocrit 29.4 % (37.0-47.0) L Mean Corpuscular Volume 88 FL (80-99) Mean Corpuscular Hemoglobin 28.0 PG (27.0-31.0) Mean Corpuscular Hemoglobin Concent 32.0 G/DL (32.0-36.0) Red Cell Distribution Width 14.2 % (11.6-14.8) Platelet Count 272 K/UL (150-450) Mean Platelet Volume 6.9 FL (6.5-10.1) Neutrophils (%) (Auto) 57.2 % (45.0-75.0) Lymphocytes (%) (Auto) 29.4 % (20.0-45.0) Monocytes (%) (Auto) 9.8 % (1.0-10.0) Eosinophils (%) (Auto) 2.8 % (0.0-3.0) Basophils (%) (Auto) 0.8 % (0.0-2.0) Erythrocyte Sedimentation Rate 96 MM/HR (0-30) H Sodium Level 141 MMOL/L (136-145) Potassium Level 3.6 MMOL/L (3.5-5.1) Chloride Level 108 MMOL/L (98-107) H Carbon Dioxide Level 27 MMOL/L (21-32) Anion Gap 6 mmol/L (5-15) Blood Urea Nitrogen 7 mg/dL (7-18) Creatinine 0.6 MG/DL (0.55-1.30) Estimat Glomerular Filtration Rate > 60 mL/min (>60) Glucose Level 103 MG/DL (74-106) Calcium Level 10.1 MG/DL (8.5-10.1) Phosphorus Level 2.7 MG/DL (2.5-4.9) Magnesium Level 1.7 MG/DL (1.8-2.4) L Total Bilirubin 0.3 MG/DL (0.2-1.0) Aspartate Amino Transf (AST/SGOT) 9 U/L (15-37) L Alanine Aminotransferase (ALT/SGPT) 7 U/L (12-78) L Alkaline Phosphatase 95 U/L (46-116) C-Reactive Protein, Quantitative 3.7 mg/dL (0.00-0.90) H Total Protein 6.3 G/DL (6.4-8.2) L Albumin 2.1 G/DL (3.4-5.0) L Globulin 4.2 g/dL Albumin/Globulin Ratio 0.5 (1.0-2.7) L Plan Problems: (1) Pressure injury of sacral region, stage 4 Assessment & Plan: 62F with stage IV full thickness pressure injury to sacral area. (L)0.4cm x(W)0.9cm x (D)0.6cm . (+)Epibole ,(+) maceration. Minimal sanguineous exudate noted. Periwound scarring with skin hyperpigmentation. no Odor Per history obtained from pt wound is a historical stage four pressure injury x15 years with recurrent openings over the years. Pt stated she has had NPWT therapy in the past for closure and also skin graft/ flap. Right knee immobilizer with prior surgical sutures noted R knee and incision is well approximated,clean and dry Wounds present on admission. Seems to have good care prior and currently stable. -No acute surgical intervention indicated. -Cleanse sacral wound with Saline.Pat dry.Apply Cavilon wipes to borders and periwound .Apply Triad to wound and cover with Biatain drsg. apply silver nitrate daily for 3 days. -Surface support mat on bed . -Encourage and assist pt to reposition side to side at least every 2hours as tolerated. -right knee sutures removed at bedside today. sutures in place for over 3 weeks and wound well healed without complication. wound clean, dry, intact. -cont knee immobilizer until cleared by her ortho surgeon -pt/to -limited weight bearing until cleared by her ortho surgeon but should not be bed bound thank you for this consultation. will follow with recs. Eliot Baig Jul 19, 2018 11:09
[2018-07-19] MEDS: Lyrica 25mg cap ORAL SCH ×2 (11:13→17:56)
[2018-07-19 12:00] VITALS: BP 160/74
--- NOTE | 2018-07-19 13:51 | Pulmonology Progress Note ---
Assessment/Plan Problems: (1) Sepsis (2) Altered mental status (3) Pressure injury of sacral region, stage 4 (4) Proteinuria (5) UTI (urinary tract infection) (6) Diabetes mellitus (7) HTN (hypertension) Assessment/Plan improving continue abx check cultures respiratory treatment titrate fio2 to sat of 92% dvt prophylaxis monitor BP Subjective ROS Limited/Unobtainable: No Constitutional: Reports: no symptoms HEENT: Repors: no symptoms Respiratory: Reports: no symptoms Allergies: Coded Allergies: PENICILLINS (Verified Allergy, Intermediate, 07/16/18) Objective Last 24 Hour Vital Signs Date Time Temp Pulse Resp B/P (MAP) Pulse Ox O2 Delivery O2 Flow Rate FiO2 07/19/18 13:04 Room Air 21 07/19/18 13:04 Room Air 21 07/19/18 12:00 98.6 73 16 160/74 (102) 98 98.6 07/19/18 11:43 97.9 07/19/18 11:13 97.9 07/19/18 08:49 97.9 07/19/18 08:21 79 16 100 Room Air 21 07/19/18 08:19 97.9 07/19/18 08:19 71 173/78 07/19/18 08:10 70 16 98 Room Air 21 07/19/18 08:00 Room Air 07/19/18 08:00 98.8 71 19 173/78 (109) 97 98.8 07/19/18 04:00 97.9 65 20 137/65 (89) 97 97.9 07/19/18 00:00 98.3 70 20 150/70 (96) 96 98.3 07/18/18 21:00 Room Air 07/18/18 20:00 98.5 75 19 145/63 (90) 100 98.5 07/18/18 19:38 77 16 100 Room Air 21 07/18/18 19:35 77 16 98 Room Air 21 07/18/18 16:00 98.4 82 18 158/77 (104) 96 98.4 Intake and Output 07/18/18 07/19/18 19:00 07:00 Intake Total 1857.5 ml 765 ml Output Total 425 ml Balance 1857.5 ml 340 ml Intake Oral 480 ml 240 ml IV Total 1377.5 ml 525 ml Output Urine Total 425 ml General Appearance: WD/WN HEENT: normocephalic, atraumatic Respiratory/Chest: chest wall non-tender, lungs clear Breasts: no masses Cardiovascular: normal rate Abdomen: normal bowel sounds, non distended Genitourinary: normal external genitalia Extremities: no clubbing Skin: no rash Microbiology Date/Time Source Procedure Growth Status 07/18/18 06:00 Blood Blood Culture - Preliminary NO GROWTH AFTER 24 HOURS Resulted 07/18/18 05:30 Blood Blood Culture - Preliminary NO GROWTH AFTER 24 HOURS Resulted Laboratory Tests 07/19/18 06:18: White Blood Count 8.7, Red Blood Count 3.35L, Hemoglobin 9.4L, Hematocrit 29.4L , Mean Corpuscular Volume 88, Mean Corpuscular Hemoglobin 28.0, Mean Corpuscular Hemoglobin Concent 32.0, Red Cell Distribution Width 14.2, Platelet Count 272, Mean Platelet Volume 6.9, Neutrophils (%) (Auto) 57.2, Lymphocytes (% ) (Auto) 29.4, Monocytes (%) (Auto) 9.8, Eosinophils (%) (Auto) 2.8, Basophils ( %) (Auto) 0.8, Erythrocyte Sedimentation Rate 96H, Sodium Level 141, Potassium Level 3.6, Chloride Level 108H, Carbon Dioxide Level 27, Anion Gap 6, Blood Urea Nitrogen 7, Creatinine 0.6, Estimat Glomerular Filtration Rate > 60, Glucose Level 103, Calcium Level 10.1, Phosphorus Level 2.7, Magnesium Level 1.7L, Total Bilirubin 0.3, Aspartate Amino Transf (AST/SGOT) 9L, Alanine Aminotransferase (ALT/SGPT) 7L, Alkaline Phosphatase 95, C-Reactive Protein, Quantitative 3.7H, Total Protein 6.3L, Albumin 2.1L, Globulin 4.2, Albumin/ Globulin Ratio 0.5L Current Medications Medications (Trade) Dose Ordered Sig/Dave Route PRN Reason Start Time Stop Time Status Last Admin Dose Admin Acetaminophen (Tylenol) 650 mg Q4H PRN ORAL Mild Pain/Temp > 100.5 07/18/18 12:15 08/17/18 12:14 Acetaminophen/ Hydrocodone Bitart ([place] 5/325) 1 tab Q4H PRN ORAL Moderate Pain (Pain Scale 4-6) 07/18/18 12:15 9/22/18 12:14 07/19/18 08:19 Albuterol Sulfate (Proventil) 2.5 mg TIDRT HHN 07/17/18 13:00 07/22/18 12:59 07/19/18 08:12 Amlodipine Besylate (Norvasc) 10 mg DAILY ORAL 07/17/18 09:00 08/16/18 08:59 07/19/18 08:19 Cefazolin Sodium 2 gm/Sodium Chloride 55 ml @ 110 mls/hr Q8H IVPB 07/19/18 15:00 07/26/18 14:59 Chlorhexidine Gluconate (Mila-Hex 2%) 1 applic DAILY@2000 TOPIC 07/17/18 20:00 08/16/18 19:59 07/18/18 20:21 Clonidine HCl (Catapres Tab) 0.1 mg Q4H PRN ORAL bp over 160 syst 07/16/18 17:15 08/15/18 17:14 07/17/18 19:09 Docusate Sodium (Colace) 100 mg THREE TIMES A DAY ORAL 07/16/18 18:00 08/15/18 17:59 07/19/18 08:10 Enoxaparin Sodium (Lovenox) 40 mg DAILY SUBQ 07/17/18 15:00 08/16/18 14:59 07/19/18 08:21 Folic Acid (Folate) 2 mg DAILY ORAL 07/17/18 09:00 08/16/18 08:59 07/19/18 08:14 Ondansetron HCl (Zofran) 4 mg Q6H PRN IVP Nausea & Vomiting 07/16/18 17:15 08/15/18 17:14 Pantoprazole (Protonix) 40 mg DAILY ORAL 07/19/18 09:00 08/18/18 08:59 07/19/18 08:11 Potassium Chloride (K-Dur) 40 meq DAILY ORAL 07/18/18 12:30 08/17/18 12:29 07/19/18 08:11 Pregabalin (Lyrica) 25 mg BID ORAL 07/19/18 10:49 08/18/18 10:48 07/19/18 11:13 Silver Nitrate (Silver Nitrate Applicators) 1 applic DAILY TOPIC 07/17/18 10:45 07/20/18 10:44 07/19/18 08:19 Temazepam (Restoril) 7.5 mg HSPRN PRN ORAL Insomnia 07/16/18 17:15 07/23/18 17:14 07/19/18 01:59 Jameson Salcedo MD Jul 19, 2018 13:51
--- NOTE | 2018-07-19 14:07 | Infectious Diseases Prog Note ---
Assessment/Plan Problems: (1) HCAP (healthcare-associated pneumonia) Assessment & Plan: with B/L interstitial infiltrates, S/P meropenem , and vancomycin , no blood cultures was not done when I ordered it initially , neither urine culture . monitor clinically, continue cefazolin as planned before till 08/04/18. continue local PICC line care and dressings changes weekly (2) Pressure injury of sacral region, stage 4 Assessment & Plan: with no evidence of underlying osteomyelitis or soft tissue abscess as per MRI of the sacrum , may benefit from skin flap in the future . continue local wound care as per hospital protocol . follow up with plastic surgery (3) Sepsis Assessment & Plan: blood cultures x2 on 07/18 is negative so far, continue cefazolin as planned before . (4) Altered mental status Assessment & Plan: due to the above, improved with antibiotics and hydration, monitor neuro status (5) UTI (urinary tract infection) Assessment & Plan: S/P meropenem for three days , urine culture was not done . Subjective Constitutional: Reports: no symptoms HEENT: Reports: no symptoms Respiratory: Reports: no symptoms Breasts: Reports: no symptoms Cardiovascular: Reports: no symptoms Gastrointestinal/Abdominal: Reports: no symptoms Genitourinary: Reports: no symptoms Neurologic: Reports: no symptoms Psychiatric: Reports: no symptoms Skin: Reports: no symptoms Endocrine: Reports: no symptoms Hematologic: Reports: no symptoms Musculoskeletal: Reports: no symptoms Allergies: Coded Allergies: PENICILLINS (Verified Allergy, Intermediate, 07/16/18) Subjective she was lying in bed comfortable, denied any symptoms , comfortable. eating better Objective Vital Signs Last 24 Hour Vital Signs Date Time Temp Pulse Resp B/P (MAP) Pulse Ox O2 Delivery O2 Flow Rate FiO2 07/19/18 13:04 Room Air 21 07/19/18 13:04 Room Air 07/19/18 12:00 98.6 73 16 160/74 (102) 98 98.6 07/19/18 11:43 97.9 07/19/18 11:13 97.9 07/19/18 08:49 97.9 07/19/18 08:21 79 16 100 Room Air 21 07/19/18 08:19 97.9 07/19/18 08:19 71 173/78 07/19/18 08:10 70 16 98 Room Air 07/19/18 08:00 Room Air 07/19/18 08:00 98.8 71 19 173/78 (109) 97 98.8 07/19/18 04:00 97.9 65 20 137/65 (89) 97 97.9 07/19/18 00:00 98.3 70 20 150/70 (96) 96 98.3 07/18/18 21:00 Room Air 07/18/18 20:00 98.5 75 19 145/63 (90) 100 98.5 07/18/18 19:38 77 16 100 Room Air 21 07/18/18 19:35 77 16 98 Room Air 21 07/18/18 16:00 98.4 82 18 158/77 (104) 96 98.4 Height (Feet): 5 Height (Inches): 8.00 Weight (Pounds): 260 General Appearance: WD/WN, no acute distress HEENT: normocephalic, atraumatic, anicteric, mucous membranes moist Respiratory/Chest: chest wall non-tender, lungs clear, normal breath sounds, no respiratory distress, no accessory muscle use Cardiovascular: normal peripheral pulses, normal rate, regular rhythm, no gallop/murmur, no JVD Abdomen: normal bowel sounds, soft, non tender, no organomegaly, non distended , no mass, no scars Extremities: no cyanosis, no clubbing, other - right knee edema Skin: no rash, no lesions, no ulcers Neurologic/Psychiatric: alert, oriented x 3, responsive Lymphatic: no neck adenopathy, no groin adenopathy Musculoskeletal: normal muscle bulk Microbiology Date/Time Source Procedure Growth Status 07/18/18 06:00 Blood Blood Culture - Preliminary NO GROWTH AFTER 24 HOURS Resulted 07/18/18 05:30 Blood Blood Culture - Preliminary NO GROWTH AFTER 24 HOURS Resulted Laboratory Tests Test 07/19/18 06:18 White Blood Count 8.7 K/UL (4.8-10.8) Red Blood Count 3.35 M/UL (4.20-5.40) L Hemoglobin 9.4 G/DL (12.0-16.0) L Hematocrit 29.4 % (37.0-47.0) L Mean Corpuscular Volume 88 FL (80-99) Mean Corpuscular Hemoglobin 28.0 PG (27.0-31.0) Mean Corpuscular Hemoglobin Concent 32.0 G/DL (32.0-36.0) Red Cell Distribution Width 14.2 % (11.6-14.8) Platelet Count 272 K/UL (150-450) Mean Platelet Volume 6.9 FL (6.5-10.1) Neutrophils (%) (Auto) 57.2 % (45.0-75.0) Lymphocytes (%) (Auto) 29.4 % (20.0-45.0) Monocytes (%) (Auto) 9.8 % (1.0-10.0) Eosinophils (%) (Auto) 2.8 % (0.0-3.0) Basophils (%) (Auto) 0.8 % (0.0-2.0) Erythrocyte Sedimentation Rate 96 MM/HR (0-30) H Sodium Level 141 MMOL/L (136-145) Potassium Level 3.6 MMOL/L (3.5-5.1) Chloride Level 108 MMOL/L (98-107) H Carbon Dioxide Level 27 MMOL/L (21-32) Anion Gap 6 mmol/L (5-15) Blood Urea Nitrogen 7 mg/dL (7-18) Creatinine 0.6 MG/DL (0.55-1.30) Estimat Glomerular Filtration Rate > 60 mL/min (>60) Glucose Level 103 MG/DL (74-106) Calcium Level 10.1 MG/DL (8.5-10.1) Phosphorus Level 2.7 MG/DL (2.5-4.9) Magnesium Level 1.7 MG/DL (1.8-2.4) L Total Bilirubin 0.3 MG/DL (0.2-1.0) Aspartate Amino Transf (AST/SGOT) 9 U/L (15-37) L Alanine Aminotransferase (ALT/SGPT) 7 U/L (12-78) L Alkaline Phosphatase 95 U/L (46-116) C-Reactive Protein, Quantitative 3.7 mg/dL (0.00-0.90) H Total Protein 6.3 G/DL (6.4-8.2) L Albumin 2.1 G/DL (3.4-5.0) L Globulin 4.2 g/dL Albumin/Globulin Ratio 0.5 (1.0-2.7) L Current Medications Medications (Trade) Dose Ordered Sig/Dave Route PRN Reason Start Time Stop Time Status Last Admin Dose Admin Acetaminophen (Tylenol) 650 mg Q4H PRN ORAL Mild Pain/Temp > 100.5 07/18/18 12:15 08/17/18 12:14 Acetaminophen/ Hydrocodone Bitart ([place] 5/325) 1 tab Q4H PRN ORAL Moderate Pain (Pain Scale 4-6) 07/18/18 12:15 07/25/18 12:14 07/19/18 08:19 Albuterol Sulfate (Proventil) 2.5 mg TIDRT HHN 07/17/18 13:00 07/22/18 12:59 07/19/18 08:12 Amlodipine Besylate (Norvasc) 10 mg DAILY ORAL 07/17/18 09:00 08/16/18 08:59 07/19/18 08:19 Cefazolin Sodium 2 gm/Sodium Chloride 55 ml @ 110 mls/hr Q8H IVPB 07/19/18 15:00 07/26/18 14:59 Chlorhexidine Gluconate (Mila-Hex 2%) 1 applic DAILY@2000 TOPIC 07/17/18 20:00 08/16/18 19:59 07/18/18 20:21 Clonidine HCl (Catapres Tab) 0.1 mg Q4H PRN ORAL bp over 160 syst 07/16/18 17:15 08/15/18 17:14 07/17/18 19:09 Docusate Sodium (Colace) 100 mg THREE TIMES A DAY ORAL 07/16/18 18:00 08/15/18 17:59 07/19/18 08:10 Enoxaparin Sodium (Lovenox) 40 mg DAILY SUBQ 07/17/18 15:00 08/16/18 14:59 07/19/18 08:21 Folic Acid (Folate) 2 mg DAILY ORAL 07/17/18 09:00 08/16/18 08:59 07/19/18 08:14 Ondansetron HCl (Zofran) 4 mg Q6H PRN IVP Nausea & Vomiting 07/16/18 17:15 08/15/18 17:14 Pantoprazole (Protonix) 40 mg DAILY ORAL 07/19/18 09:00 08/18/18 08:59 07/19/18 08:11 Potassium Chloride (K-Dur) 40 meq DAILY ORAL 07/18/18 12:30 08/17/18 12:29 07/19/18 08:11 Pregabalin (Lyrica) 25 mg BID ORAL 07/19/18 10:49 08/18/18 10:48 07/19/18 11:13 Silver Nitrate (Silver Nitrate Applicators) 1 applic DAILY TOPIC 07/17/18 10:45 07/20/18 10:44 07/19/18 08:19 Temazepam (Restoril) 7.5 mg HSPRN PRN ORAL Insomnia 07/16/18 17:15 07/23/18 17:14 07/19/18 01:59 Jason Kong M.D. Jul 19, 2018 14:07
[2018-07-19] MEDS: ceFAZolin sod 2 GM in NS 55 ML IVPB SCH ×2 (15:52→22:08)
[2018-07-19 16:00] VITALS: BP 167/94
[2018-07-19 20:06] VITALS: BP 159/80
[2018-07-19] MEDS: Dyna-Hex 2% Top Sol 2oz TOPIC SCH (20:31)
[2018-07-20] VITALS (9 sets, daily range): BP systolic 124–169; BP diastolic 67–79
[2018-07-20] MEDS: Norco 5mg/325mg tab ORAL PRN ×6 (00:28→20:52)
[2018-07-20 06:04] LABS: EOSINOPHILS % (AUTO) 2.9 % (0.0-3.0); HEMATOCRIT 29.2 % (37.0-47.0); HEMOGLOBIN 9.4 G/DL (12.0-16.0); LYMPHOCYTES % (AUTO) 29.1 % (20.0-45.0); MEAN CORPUSCULAR VOLUME 88 FL (80-99); MONOCYTES % (AUTO) 9.3 % (1.0-10.0); NEUTROPHILS % (AUTO) 57.8 % (45.0-75.0); PLATELET COUNT 263 K/UL (150-450); RED BLOOD COUNT 3.33 M/UL (4.20-5.40); WHITE BLOOD COUNT 8.1 K/UL (4.8-10.8)
[2018-07-20] MEDS: ceFAZolin sod 2 GM in NS 55 ML IVPB SCH (06:07)
[2018-07-20 06:16] LABS: ALANINE AMINOTRANSFERASE 7 U/L (12-78); ALBUMIN 2.2 G/DL (3.4-5.0); ALBUMIN/GLOBULIN RATIO 0.5 (1.0-2.7); ALKALINE PHOSPHATASE 99 U/L (46-116); ANION GAP 6 mmol/L (5-15); ASPARTATE AMINO TRANSFERASE 9 U/L (15-37); BILIRUBIN,TOTAL 0.3 MG/DL (0.2-1.0); BLOOD UREA NITROGEN 7 mg/dL (7-18); CALCIUM 10.8 MG/DL (8.5-10.1); CARBON DIOXIDE 28 MMOL/L (21-32); CHLORIDE 107 MMOL/L (98-107); CREATININE 0.7 MG/DL (0.55-1.30); PHOSPHORUS 2.9 MG/DL (2.5-4.9); POTASSIUM 3.8 MMOL/L (3.5-5.1); SODIUM 141 MMOL/L (136-145)
[2018-07-20] MEDS: Albuterol ud Inhalation HHN SCH ×3 (07:00→19:59)
[2018-07-20] MEDS: Docusate 100mg cap ORAL SCH ×3 (08:37→17:38)
[2018-07-20] MEDS: Lyrica 25mg cap ORAL SCH ×2 (08:39→17:38)
[2018-07-20] MEDS: Enoxaparin 40mg Inj SUBQ SCH (08:41)
[2018-07-20] MEDS: Silver Nitrate Stick TOPIC SCH (08:47)
--- NOTE | 2018-07-20 10:41 | Nephrology Progress Note ---
Assessment/Plan Problem List: (1) Sepsis (2) Pressure injury of sacral region, stage 4 (3) Acute encephalopathy (4) Electrolyte abnormality (5) Anemia of chronic disease (6) Proteinuria Assessment (1) HCAP (healthcare-associated pneumonia) Assessment & Plan: with B/L interstitial infiltrates, S/P meropenem , and vancomycin , no blood cultures was not done when I ordered it initially , neither urine culture . monitor clinically, continue cefazolin as planned before till 08/04/18. continue local PICC line care and dressings changes weekly (2) Pressure injury of sacral region, stage 4 Assessment & Plan: with no evidence of underlying osteomyelitis or soft tissue abscess as per MRI of the sacrum , may benefit from skin flap in the future . continue local wound care as per hospital protocol . follow up with plastic surgery Encephalopathy clearing Electrolyte abnormalities Proteinuria ? Line sepsis, Picc line left upper arm stage 4 decub Basal Atx: Pneumonia Obese Anemia HTN ?DM recent right knee surgery PCN Allergy I Plan IV Fluid mag and K supplement as needed off antibiotics- pain meds hold mind altering meds: Soma [place] Robaxin BP control HgbA1c and TSH and lipids results noted Per orders ID eval appreciated St eval: Rec PO to be started HHN plan to DC Subjective ROS Limited/Unobtainable: No Objective Objective Last 24 Hour Vital Signs Date Time Temp Pulse Resp B/P (MAP) Pulse Ox O2 Delivery O2 Flow Rate FiO2 07/20/18 09:00 Room Air 07/20/18 08:37 71 132/71 07/20/18 08:00 98.4 71 19 132/71 (91) 97 98.4 07/20/18 08:00 98.4 71 19 132/71 (91) 97 98.4 07/20/18 07:00 Room Air 21 07/20/18 07:00 Room Air 21 07/20/18 06:13 58 157/74 (101) 07/20/18 05:00 98.5 07/20/18 04:30 98.5 07/20/18 04:30 161/73 07/20/18 04:13 98.5 70 19 161/73 (102) 100 98.5 07/20/18 00:37 98.6 68 19 151/67 (95) 98 98.6 07/20/18 00:28 98.6 07/19/18 20:38 73 16 100 Room Air 21 07/19/18 20:33 70 20 99 Room Air 21 07/19/18 20:32 98.6 07/19/18 20:32 Room Air 07/19/18 20:06 98.6 68 19 159/80 (106) 100 98.6 07/19/18 18:26 98.6 07/19/18 17:56 98.6 07/19/18 17:02 167/94 07/19/18 16:00 97.8 72 20 167/94 (118) 95 97.8 07/19/18 15:50 98.6 07/19/18 13:04 Room Air 21 07/19/18 13:04 Room Air 21 07/19/18 12:00 98.6 73 16 160/74 (102) 98 98.6 07/19/18 11:13 97.9 Intake and Output 07/19/18 07/20/18 19:00 07:00 Intake Total 795 ml 295 ml Balance 795 ml 295 ml Intake Oral 740 ml 240 ml IV Total 55 ml 55 ml # Voids 7 2 # Bowel Movements 2 1 Current Medications Medications (Trade) Dose Ordered Sig/Dave Route PRN Reason Start Time Stop Time Status Last Admin Dose Admin Acetaminophen (Tylenol) 650 mg Q4H PRN ORAL Mild Pain/Temp > 100.5 07/18/18 12:15 08/17/18 12:14 Acetaminophen/ Hydrocodone Bitart ([place] 5/325) 1 tab Q4H PRN ORAL Moderate Pain (Pain Scale 4-6) 07/18/18 12:15 07/25/18 12:14 07/20/18 08:40 Albuterol Sulfate (Proventil) 2.5 mg TIDRT HHN 07/17/18 13:00 07/22/18 12:59 07/19/18 20:32 Amlodipine Besylate (Norvasc) 10 mg DAILY ORAL 07/17/18 09:00 08/16/18 08:59 07/20/18 08:37 Cefazolin Sodium 50 ml @ 100 mls/hr Q8HR IV 07/20/18 14:00 07/27/18 13:59 Chlorhexidine Gluconate (Mila-Hex 2%) 1 applic DAILY@2000 TOPIC 07/17/18 20:00 08/16/18 19:59 07/19/18 20:31 Clonidine HCl (Catapres Tab) 0.1 mg Q4H PRN ORAL bp over 160 syst 07/16/18 17:15 08/15/18 17:14 07/20/18 04:30 Docusate Sodium (Colace) 100 mg THREE TIMES A DAY ORAL 07/16/18 18:00 08/15/18 17:59 07/20/18 08:37 Enoxaparin Sodium (Lovenox) 40 mg DAILY SUBQ 07/17/18 15:00 08/16/18 14:59 07/20/18 08:41 Folic Acid (Folate) 2 mg DAILY ORAL 07/17/18 09:00 08/16/18 08:59 07/20/18 08:37 Magnesium Sulfate 100 ml @ 100 mls/hr Q1H IVPB 07/20/18 09:00 07/20/18 10:59 07/20/18 10:06 Ondansetron HCl (Zofran) 4 mg Q6H PRN IVP Nausea & Vomiting 07/16/18 17:15 08/15/18 17:14 Pamidronate Disodium 60 mg/ Sodium Chloride 550 ml @ 137.5 mls/ hr ONCE ONCE IVPB 07/20/18 11:00 07/20/18 14:59 Pantoprazole (Protonix) 40 mg DAILY ORAL 07/19/18 09:00 08/18/18 08:59 07/20/18 08:37 Potassium Chloride (K-Dur) 40 meq DAILY ORAL 07/18/18 12:30 08/17/18 12:29 07/20/18 08:40 Pregabalin (Lyrica) 25 mg BID ORAL 07/19/18 10:49 08/18/18 10:48 07/20/18 08:39 Silver Nitrate (Silver Nitrate Applicators) 1 applic DAILY TOPIC 07/17/18 10:45 07/20/18 10:44 07/20/18 08:47 Temazepam (Restoril) 7.5 mg HSPRN PRN ORAL Insomnia 07/16/18 17:15 07/23/18 17:14 07/19/18 01:59 Laboratory Tests 07/20/18 05:00: White Blood Count 8.1, Red Blood Count 3.33L, Hemoglobin 9.4L, Hematocrit 29.2L , Mean Corpuscular Volume 88, Mean Corpuscular Hemoglobin 28.3, Mean Corpuscular Hemoglobin Concent 32.3, Red Cell Distribution Width 14.0, Platelet Count 263, Mean Platelet Volume 6.4L, Neutrophils (%) (Auto) 57.8, Lymphocytes ( %) (Auto) 29.1, Monocytes (%) (Auto) 9.3, Eosinophils (%) (Auto) 2.9, Basophils (%) (Auto) 1.0, Sodium Level 141, Potassium Level 3.8, Chloride Level 107, Carbon Dioxide Level 28, Anion Gap 6, Blood Urea Nitrogen 7, Creatinine 0.7, Estimat Glomerular Filtration Rate > 60, Glucose Level 97, Calcium Level 10.8H, Phosphorus Level 2.9, Magnesium Level 1.6L, Total Bilirubin 0.3, Aspartate Amino Transf (AST/SGOT) 9L, Alanine Aminotransferase (ALT/SGPT) 7L, Alkaline Phosphatase 99, Total Protein 6.4, Albumin 2.2L, Globulin 4.2, Albumin/Globulin Ratio 0.5L Height (Feet): 5 Height (Inches): 8.00 Weight (Pounds): 260 General Appearance: no apparent distress Cardiovascular: normal rate Respiratory/Chest: lungs clear Abdomen: soft Roe Mcghee MD Jul 20, 2018 10:41
[2018-07-20] MEDS ORDERED: ACETAMINOPHEN325 M1 ORAL (10:46)
[2018-07-20] MEDS ORDERED: POTASSIUM CHLO20 ME1 ORAL (10:46)
[2018-07-20] MEDS ORDERED: PROTONIX40 MG ORAL (10:46)
[2018-07-20] MEDS ORDERED: ALBUTEROL2.5 MG/3 M HHN (10:46)
[2018-07-20] MEDS ORDERED: RESTORIL7.5 MG ORAL (10:46)
[2018-07-20] MEDS ORDERED: NORVASC10 MG ORAL (10:46)
[2018-07-20] MEDS ORDERED: NORCO 5-325 TA1 EACH ORAL (10:46)
[2018-07-20] MEDS ORDERED: LYRICA25 MG ORAL (10:46)
[2018-07-20] MEDS ORDERED: LOVENOX10 M4 SUBQ (10:46)
[2018-07-20] MEDS ORDERED: DOK100 M1 ORAL (10:46)
[2018-07-20] MEDS ORDERED: CEFAZOLIN2 GM/50 ML IV (10:46)
--- NOTE | 2018-07-20 10:48 | Discharge Instructions ---
Discharge Instructions Discharge Instructions Follow up with: with PMD Dr Uriostegui Diet: cardiac 2 GM Na, low fat Special Instructions routin Picc line care- Sacral stage 4 decub care- wound care eval Continue Cefazoline til Oct 2 PT OT eval Avoid strong mind altering meds For Congestive Heart Failure Reminder Report to your physician any weight gain of 5 pounds or more in one week. Roe Mcghee MD Jul 20, 2018 10:48
--- NOTE | 2018-07-20 10:48 | Discharge Instructions ---
Discharge Instructions For Congestive Heart Failure Reminder Report to your physician any weight gain of 5 pounds or more in one week. Roe Mcghee MD Jul 20, 2018 10:48
[2018-07-20] MEDS ORDERED: Pamidronate Disodium Inj 60 MG in Sodium Chloride 500ML 550 ML IVPB ONE (11:00)
--- NOTE | 2018-07-20 13:09 | General Surgery Progress Note ---
General Surgery-Progress Note Subjective Additional Comments no acute events. doing well. comfortable. no issues Objective Last 24 Hour Vital Signs Date Time Temp Pulse Resp B/P (MAP) Pulse Ox O2 Delivery O2 Flow Rate FiO2 07/20/18 12:00 98.0 71 20 124/70 (88) 98 98.0 07/20/18 09:00 Room Air 07/20/18 08:37 71 132/71 07/20/18 08:00 98.4 71 19 132/71 (91) 97 98.4 07/20/18 08:00 98.4 71 19 132/71 (91) 97 98.4 07/20/18 07:00 Room Air 21 07/20/18 07:00 Room Air 21 07/20/18 06:13 58 157/74 (101) 07/20/18 05:00 98.5 07/20/18 04:30 98.5 07/20/18 04:30 161/73 07/20/18 04:13 98.5 70 19 161/73 (102) 100 98.5 07/20/18 00:37 98.6 68 19 151/67 (95) 98 98.6 07/20/18 00:28 98.6 07/19/18 20:38 73 16 100 Room Air 21 07/19/18 20:33 70 20 99 Room Air 21 07/19/18 20:32 98.6 07/19/18 20:32 Room Air 07/19/18 20:06 98.6 68 19 159/80 (106) 100 98.6 07/19/18 18:26 98.6 07/19/18 17:56 98.6 07/19/18 17:02 167/94 07/19/18 16:00 97.8 72 20 167/94 (118) 95 97.8 07/19/18 15:50 98.6 I&O Intake and Output 07/19/18 07/20/18 19:00 07:00 Intake Total 795 ml 295 ml Balance 795 ml 295 ml Intake Oral 740 ml 240 ml IV Total 55 ml 55 ml # Voids 7 2 # Bowel Movements 2 1 Wound: clean, dry, intact Drains: none Cardiovascular: RSR Respiratory: clear Abdomen: soft, flat, non-tender, present bowel sounds Extremities: no tenderness, no cyanosis Laboratory Tests Test 07/20/18 05:00 White Blood Count 8.1 K/UL (4.8-10.8) Red Blood Count 3.33 M/UL (4.20-5.40) L Hemoglobin 9.4 G/DL (12.0-16.0) L Hematocrit 29.2 % (37.0-47.0) L Mean Corpuscular Volume 88 FL (80-99) Mean Corpuscular Hemoglobin 28.3 PG (27.0-31.0) Mean Corpuscular Hemoglobin Concent 32.3 G/DL (32.0-36.0) Red Cell Distribution Width 14.0 % (11.6-14.8) Platelet Count 263 K/UL (150-450) Mean Platelet Volume 6.4 FL (6.5-10.1) L Neutrophils (%) (Auto) 57.8 % (45.0-75.0) Lymphocytes (%) (Auto) 29.1 % (20.0-45.0) Monocytes (%) (Auto) 9.3 % (1.0-10.0) Eosinophils (%) (Auto) 2.9 % (0.0-3.0) Basophils (%) (Auto) 1.0 % (0.0-2.0) Sodium Level 141 MMOL/L (136-145) Potassium Level 3.8 MMOL/L (3.5-5.1) Chloride Level 107 MMOL/L (98-107) Carbon Dioxide Level 28 MMOL/L (21-32) Anion Gap 6 mmol/L (5-15) Blood Urea Nitrogen 7 mg/dL (7-18) Creatinine 0.7 MG/DL (0.55-1.30) Estimat Glomerular Filtration Rate > 60 mL/min (>60) Glucose Level 97 MG/DL (74-106) Calcium Level 10.8 MG/DL (8.5-10.1) H Phosphorus Level 2.9 MG/DL (2.5-4.9) Magnesium Level 1.6 MG/DL (1.8-2.4) L Total Bilirubin 0.3 MG/DL (0.2-1.0) Aspartate Amino Transf (AST/SGOT) 9 U/L (15-37) L Alanine Aminotransferase (ALT/SGPT) 7 U/L (12-78) L Alkaline Phosphatase 99 U/L (46-116) Total Protein 6.4 G/DL (6.4-8.2) Albumin 2.2 G/DL (3.4-5.0) L Globulin 4.2 g/dL Albumin/Globulin Ratio 0.5 (1.0-2.7) L Plan Problems: (1) Pressure injury of sacral region, stage 4 Assessment & Plan: 62F with stage IV full thickness pressure injury to sacral area. (L)0.4cm x(W)0.9cm x (D)0.6cm . (+)Epibole ,(+) maceration. Minimal sanguineous exudate noted. Periwound scarring with skin hyperpigmentation. no Odor Per history obtained from pt wound is a historical stage four pressure injury x15 years with recurrent openings over the years. Pt stated she has had NPWT therapy in the past for closure and also skin graft/ flap. Right knee immobilizer with prior surgical sutures noted R knee and incision is well approximated,clean and dry Wounds present on admission. Seems to have good care prior and currently stable. -No acute surgical intervention indicated. -Cleanse sacral wound with Saline.Pat dry.Apply Cavilon wipes to borders and periwound .Apply Triad to wound and cover with Biatain drsg. apply silver nitrate daily for 3 days. -Surface support mat on bed . -Encourage and assist pt to reposition side to side at least every 2hours as tolerated. -right knee sutures removed at bedside today. sutures in place for over 3 weeks and wound well healed without complication. wound clean, dry, intact. -cont knee immobilizer until cleared by her ortho surgeon -pt/to -limited weight bearing until cleared by her ortho surgeon but should not be bed bound -okay to d/c from surgical standpoint -f/u with ortho as outpatient -sacral wound care cont as outpatient as before thank you for this consultation. Eliot Baig Jul 20, 2018 13:09
--- NOTE | 2018-07-20 13:25 | Pulmonology Progress Note ---
Assessment/Plan Problems: (1) Sepsis (2) Altered mental status (3) Pressure injury of sacral region, stage 4 (4) Proteinuria (5) UTI (urinary tract infection) (6) Diabetes mellitus (7) HTN (hypertension) Assessment/Plan dong better afebrile all reviewed improving continue abx check cultures respiratory treatment titrate fio2 to sat of 92% dvt prophylaxis monitor BP Subjective ROS Limited/Unobtainable: No Constitutional: Reports: no symptoms HEENT: Repors: no symptoms Respiratory: Reports: no symptoms Allergies: Coded Allergies: PENICILLINS (Verified Allergy, Intermediate, 07/16/18) Objective Last 24 Hour Vital Signs Date Time Temp Pulse Resp B/P (MAP) Pulse Ox O2 Delivery O2 Flow Rate FiO2 07/20/18 12:00 98.0 71 20 124/70 (88) 98 98.0 07/20/18 09:00 Room Air 07/20/18 08:37 71 132/71 07/20/18 08:00 98.4 71 19 132/71 (91) 97 98.4 07/20/18 08:00 98.4 71 19 132/71 (91) 97 98.4 07/20/18 07:00 Room Air 21 07/20/18 07:00 Room Air 21 07/20/18 06:13 58 157/74 (101) 07/20/18 05:00 98.5 07/20/18 04:30 98.5 07/20/18 04:30 161/73 07/20/18 04:13 98.5 70 19 161/73 (102) 100 98.5 07/20/18 00:37 98.6 68 19 151/67 (95) 98 98.6 07/20/18 00:28 98.6 07/19/18 20:38 73 16 100 Room Air 21 07/19/18 20:33 70 20 99 Room Air 21 07/19/18 20:32 98.6 07/19/18 20:32 Room Air 07/19/18 20:06 98.6 68 19 159/80 (106) 100 98.6 07/19/18 18:26 98.6 07/19/18 17:56 98.6 07/19/18 17:02 167/94 07/19/18 16:00 97.8 72 20 167/94 (118) 95 97.8 07/19/18 15:50 98.6 Intake and Output 07/19/18 07/20/18 19:00 07:00 Intake Total 795 ml 295 ml Balance 795 ml 295 ml Intake Oral 740 ml 240 ml IV Total 55 ml 55 ml # Voids 7 2 # Bowel Movements 2 1 General Appearance: WD/WN, no acute distress HEENT: atraumatic Respiratory/Chest: chest wall non-tender, lungs clear Cardiovascular: normal peripheral pulses, regular rhythm Abdomen: soft, non tender, non distended Extremities: no cyanosis Skin: no lesions Microbiology Date/Time Source Procedure Growth Status 07/18/18 06:00 Blood Blood Culture - Preliminary NO GROWTH AFTER 24 HOURS Resulted 07/18/18 05:30 Blood Blood Culture - Preliminary NO GROWTH AFTER 24 HOURS Resulted Laboratory Tests 07/20/18 05:00: White Blood Count 8.1, Red Blood Count 3.33L, Hemoglobin 9.4L, Hematocrit 29.2L , Mean Corpuscular Volume 88, Mean Corpuscular Hemoglobin 28.3, Mean Corpuscular Hemoglobin Concent 32.3, Red Cell Distribution Width 14.0, Platelet Count 263, Mean Platelet Volume 6.4L, Neutrophils (%) (Auto) 57.8, Lymphocytes ( %) (Auto) 29.1, Monocytes (%) (Auto) 9.3, Eosinophils (%) (Auto) 2.9, Basophils (%) (Auto) 1.0, Sodium Level 141, Potassium Level 3.8, Chloride Level 107, Carbon Dioxide Level 28, Anion Gap 6, Blood Urea Nitrogen 7, Creatinine 0.7, Estimat Glomerular Filtration Rate > 60, Glucose Level 97, Calcium Level 10.8H, Phosphorus Level 2.9, Magnesium Level 1.6L, Total Bilirubin 0.3, Aspartate Amino Transf (AST/SGOT) 9L, Alanine Aminotransferase (ALT/SGPT) 7L, Alkaline Phosphatase 99, Total Protein 6.4, Albumin 2.2L, Globulin 4.2, Albumin/Globulin Ratio 0.5L Current Medications Medications (Trade) Dose Ordered Sig/Dave Route PRN Reason Start Time Stop Time Status Last Admin Dose Admin Acetaminophen (Tylenol) 650 mg Q4H PRN ORAL Mild Pain/Temp > 100.5 07/18/18 12:15 08/17/18 12:14 Acetaminophen/ Hydrocodone Bitart ([place] 5/325) 1 tab Q4H PRN ORAL Moderate Pain (Pain Scale 4-6) 07/18/18 12:15 07/25/18 12:14 07/20/18 12:33 Albuterol Sulfate (Proventil) 2.5 mg TIDRT HHN 07/17/18 13:00 07/22/18 12:59 07/19/18 20:32 Amlodipine Besylate (Norvasc) 10 mg DAILY ORAL 07/17/18 09:00 08/16/18 08:59 07/20/18 08:37 Cefazolin Sodium 50 ml @ 100 mls/hr Q8HR IV 07/20/18 14:00 07/27/18 13:59 Chlorhexidine Gluconate (Mila-Hex 2%) 1 applic DAILY@2000 TOPIC 07/17/18 20:00 08/16/18 19:59 07/19/18 20:31 Clonidine HCl (Catapres Tab) 0.1 mg Q4H PRN ORAL bp over 160 syst 07/16/18 17:15 08/15/18 17:14 07/20/18 04:30 Docusate Sodium (Colace) 100 mg THREE TIMES A DAY ORAL 07/16/18 18:00 08/15/18 17:59 07/20/18 12:33 Enoxaparin Sodium (Lovenox) 40 mg DAILY SUBQ 07/17/18 15:00 08/16/18 14:59 07/20/18 08:41 Folic Acid (Folate) 2 mg DAILY ORAL 07/17/18 09:00 08/16/18 08:59 07/20/18 08:37 Ondansetron HCl (Zofran) 4 mg Q6H PRN IVP Nausea & Vomiting 07/16/18 17:15 08/15/18 17:14 Pamidronate Disodium 60 mg/ Sodium Chloride 550 ml @ 137.5 mls/ hr ONCE ONCE IVPB 07/20/18 11:00 07/20/18 14:59 07/20/18 11:34 Pantoprazole (Protonix) 40 mg DAILY ORAL 07/19/18 09:00 08/18/18 08:59 07/20/18 08:37 Potassium Chloride (K-Dur) 40 meq DAILY ORAL 07/18/18 12:30 08/17/18 12:29 07/20/18 08:40 Pregabalin (Lyrica) 25 mg BID ORAL 07/19/18 10:49 08/18/18 10:48 07/20/18 08:39 Temazepam (Restoril) 7.5 mg HSPRN PRN ORAL Insomnia 07/16/18 17:15 07/23/18 17:14 07/19/18 01:59 Jameson Salcedo MD Jul 20, 2018 13:25
--- NOTE | 2018-07-20 14:56 | Infectious Diseases Prog Note ---
Assessment/Plan Problems: (1) HCAP (healthcare-associated pneumonia) Assessment & Plan: with B/L interstitial infiltrates, S/P meropenem , and vancomycin , no blood cultures or urine culture was done when they were ordered initially . monitor clinically, continue cefazolin as planned before till 08/04. continue local PICC line care and dressings changes weekly (2) Pressure injury of sacral region, stage 4 Assessment & Plan: with no evidence of underlying osteomyelitis or soft tissue abscess as per MRI of the sacrum , may benefit from skin flap in the future . continue local wound care as per hospital protocol . follow up with plastic surgery (3) Sepsis Assessment & Plan: blood cultures x2 on 07/18 is negative so far, continue cefazolin as planned before . (4) Altered mental status Assessment & Plan: due to the above, improved with antibiotics and hydration, monitor neuro status (5) UTI (urinary tract infection) Assessment & Plan: S/P meropenem for three days , urine culture was not done . Subjective Constitutional: Reports: no symptoms HEENT: Reports: no symptoms Respiratory: Reports: no symptoms Breasts: Reports: no symptoms Cardiovascular: Reports: no symptoms Gastrointestinal/Abdominal: Reports: no symptoms Genitourinary: Reports: no symptoms Neurologic: Reports: no symptoms Psychiatric: Reports: no symptoms Skin: Reports: no symptoms Endocrine: Reports: no symptoms Hematologic: Reports: no symptoms Musculoskeletal: Reports: no symptoms Allergies: Coded Allergies: PENICILLINS (Verified Allergy, Intermediate, 07/16/18) Subjective she was lying in bed comfortable, denied any symptoms , comfortable. eating better Objective Vital Signs Last 24 Hour Vital Signs Date Time Temp Pulse Resp B/P (MAP) Pulse Ox O2 Delivery O2 Flow Rate FiO2 07/20/18 13:00 Room Air 21 07/20/18 13:00 Room Air 21 07/20/18 12:00 98.0 71 20 124/70 (88) 98 98.0 07/20/18 09:00 Room Air 07/20/18 08:37 71 132/71 07/20/18 08:00 98.4 71 19 132/71 (91) 97 98.4 07/20/18 08:00 98.4 71 19 132/71 (91) 97 98.4 07/20/18 07:00 Room Air 21 07/20/18 07:00 Room Air 21 07/20/18 06:13 58 157/74 (101) 07/20/18 05:00 98.5 07/20/18 04:30 98.5 07/20/18 04:30 161/73 07/20/18 04:13 98.5 70 19 161/73 (102) 100 98.5 07/20/18 00:37 98.6 68 19 151/67 (95) 98 98.6 07/20/18 00:28 98.6 07/19/18 20:38 73 16 100 Room Air 21 07/19/18 20:33 70 20 99 Room Air 21 07/19/18 20:32 98.6 07/19/18 20:32 Room Air 07/19/18 20:06 98.6 68 19 159/80 (106) 100 98.6 07/19/18 18:26 98.6 07/19/18 17:56 98.6 07/19/18 17:02 167/94 07/19/18 16:00 97.8 72 20 167/94 (118) 95 97.8 07/19/18 15:50 98.6 Height (Feet): 5 Height (Inches): 8.00 Weight (Pounds): 260 General Appearance: WD/WN, no acute distress HEENT: normocephalic, atraumatic, anicteric, mucous membranes moist, PERRL Respiratory/Chest: chest wall non-tender, lungs clear, normal breath sounds, no respiratory distress, no accessory muscle use Cardiovascular: normal peripheral pulses, normal rate, regular rhythm, no gallop/murmur, no JVD Abdomen: normal bowel sounds, soft, non tender, no organomegaly, non distended , no mass, no scars Extremities: no cyanosis, no clubbing Skin: no rash, no lesions, ulcers Neurologic/Psychiatric: alert, oriented x 3, responsive Lymphatic: no neck adenopathy, no groin adenopathy Musculoskeletal: normal muscle bulk Microbiology Date/Time Source Procedure Growth Status 07/18/18 06:00 Blood Blood Culture - Preliminary NO GROWTH AFTER 24 HOURS Resulted 07/18/18 05:30 Blood Blood Culture - Preliminary NO GROWTH AFTER 24 HOURS Resulted Laboratory Tests Test 07/20/18 05:00 White Blood Count 8.1 K/UL (4.8-10.8) Red Blood Count 3.33 M/UL (4.20-5.40) L Hemoglobin 9.4 G/DL (12.0-16.0) L Hematocrit 29.2 % (37.0-47.0) L Mean Corpuscular Volume 88 FL (80-99) Mean Corpuscular Hemoglobin 28.3 PG (27.0-31.0) Mean Corpuscular Hemoglobin Concent 32.3 G/DL (32.0-36.0) Red Cell Distribution Width 14.0 % (11.6-14.8) Platelet Count 263 K/UL (150-450) Mean Platelet Volume 6.4 FL (6.5-10.1) L Neutrophils (%) (Auto) 57.8 % (45.0-75.0) Lymphocytes (%) (Auto) 29.1 % (20.0-45.0) Monocytes (%) (Auto) 9.3 % (1.0-10.0) Eosinophils (%) (Auto) 2.9 % (0.0-3.0) Basophils (%) (Auto) 1.0 % (0.0-2.0) Sodium Level 141 MMOL/L (136-145) Potassium Level 3.8 MMOL/L (3.5-5.1) Chloride Level 107 MMOL/L (98-107) Carbon Dioxide Level 28 MMOL/L (21-32) Anion Gap 6 mmol/L (5-15) Blood Urea Nitrogen 7 mg/dL (7-18) Creatinine 0.7 MG/DL (0.55-1.30) Estimat Glomerular Filtration Rate > 60 mL/min (>60) Glucose Level 97 MG/DL (74-106) Calcium Level 10.8 MG/DL (8.5-10.1) H Phosphorus Level 2.9 MG/DL (2.5-4.9) Magnesium Level 1.6 MG/DL (1.8-2.4) L Total Bilirubin 0.3 MG/DL (0.2-1.0) Aspartate Amino Transf (AST/SGOT) 9 U/L (15-37) L Alanine Aminotransferase (ALT/SGPT) 7 U/L (12-78) L Alkaline Phosphatase 99 U/L (46-116) Total Protein 6.4 G/DL (6.4-8.2) Albumin 2.2 G/DL (3.4-5.0) L Globulin 4.2 g/dL Albumin/Globulin Ratio 0.5 (1.0-2.7) L Current Medications Medications (Trade) Dose Ordered Sig/Dave Route PRN Reason Start Time Stop Time Status Last Admin Dose Admin Acetaminophen (Tylenol) 650 mg Q4H PRN ORAL Mild Pain/Temp > 100.5 07/18/18 12:15 08/17/18 12:14 Acetaminophen/ Hydrocodone Bitart ([place] 5/325) 1 tab Q4H PRN ORAL Moderate Pain (Pain Scale 4-6) 07/18/18 12:15 07/25/18 12:14 07/20/18 12:33 Albuterol Sulfate (Proventil) 2.5 mg TIDRT HHN 07/17/18 13:00 07/22/18 12:59 07/19/18 20:32 Amlodipine Besylate (Norvasc) 10 mg DAILY ORAL 07/17/18 09:00 08/16/18 08:59 07/20/18 08:37 Cefazolin Sodium 50 ml @ 100 mls/hr Q8HR IV 07/20/18 14:00 07/27/18 13:59 Chlorhexidine Gluconate (Mila-Hex 2%) 1 applic DAILY@2000 TOPIC 07/17/18 20:00 08/16/18 19:59 07/19/18 20:31 Clonidine HCl (Catapres Tab) 0.1 mg Q4H PRN ORAL bp over 160 syst 07/16/18 17:15 08/15/18 17:14 07/20/18 04:30 Docusate Sodium (Colace) 100 mg THREE TIMES A DAY ORAL 07/16/18 18:00 08/15/18 17:59 07/20/18 12:33 Enoxaparin Sodium (Lovenox) 40 mg DAILY SUBQ 07/17/18 15:00 08/16/18 14:59 07/20/18 08:41 Folic Acid (Folate) 2 mg DAILY ORAL 07/17/18 09:00 08/16/18 08:59 07/20/18 08:37 Ondansetron HCl (Zofran) 4 mg Q6H PRN IVP Nausea & Vomiting 07/16/18 17:15 08/15/18 17:14 Pamidronate Disodium 60 mg/ Sodium Chloride 550 ml @ 137.5 mls/ hr ONCE ONCE IVPB 07/20/18 11:00 07/20/18 14:59 07/20/18 11:34 Pantoprazole (Protonix) 40 mg DAILY ORAL 07/19/18 09:00 08/18/18 08:59 07/20/18 08:37 Potassium Chloride (K-Dur) 40 meq DAILY ORAL 07/18/18 12:30 08/17/18 12:29 07/20/18 08:40 Pregabalin (Lyrica) 25 mg BID ORAL 07/19/18 10:49 08/18/18 10:48 07/20/18 08:39 Temazepam (Restoril) 7.5 mg HSPRN PRN ORAL Insomnia 07/16/18 17:15 07/23/18 17:14 07/19/18 01:59 Jason Kong M.D. Jul 20, 2018 14:56
[2018-07-20] MEDS: ceFAZolin 2gm/50ml Premix 50 ML IV SCH ×2 (16:16→21:43)
[2018-07-20] MEDS: Dyna-Hex 2% Top Sol 2oz TOPIC SCH (20:52)
[2018-07-21] VITALS (7 sets, daily range): BP systolic 141–173; BP diastolic 73–90
[2018-07-21] MEDS: Norco 5mg/325mg tab ORAL PRN ×4 (00:52→13:23)
[2018-07-21] MEDS: ceFAZolin 2gm/50ml Premix 50 ML IV SCH (05:50)
[2018-07-21 06:16] LABS: BASOPHILS % (AUTO) 0.5 % (0.0-2.0); EOSINOPHILS % (AUTO) 2.7 % (0.0-3.0); HEMATOCRIT 29.6 % (37.0-47.0); HEMOGLOBIN 9.5 G/DL (12.0-16.0); LYMPHOCYTES % (AUTO) 12.5 % (20.0-45.0); MEAN CORPUSCULAR VOLUME 87 FL (80-99); MONOCYTES % (AUTO) 6.8 % (1.0-10.0); NEUTROPHILS % (AUTO) 77.6 % (45.0-75.0); PLATELET COUNT 271 K/UL (150-450); RED CELL DISTRIBUTION WIDTH 13.8 % (11.6-14.8); WHITE BLOOD COUNT 7.2 K/UL (4.8-10.8)
[2018-07-21 07:02] LABS: ALANINE AMINOTRANSFERASE 7 U/L (12-78); ALBUMIN 2.3 G/DL (3.4-5.0); ALBUMIN/GLOBULIN RATIO 0.5 (1.0-2.7); ALKALINE PHOSPHATASE 101 U/L (46-116); ANION GAP 2 mmol/L (5-15); ASPARTATE AMINO TRANSFERASE 10 U/L (15-37); BILIRUBIN,TOTAL 0.3 MG/DL (0.2-1.0); BLOOD UREA NITROGEN 9 mg/dL (7-18); CALCIUM 10.5 MG/DL (8.5-10.1); CARBON DIOXIDE 29 MMOL/L (21-32); CHLORIDE 107 MMOL/L (98-107); CREATININE 0.6 MG/DL (0.55-1.30); PHOSPHORUS 2.9 MG/DL (2.5-4.9); POTASSIUM 4.1 MMOL/L (3.5-5.1); SODIUM 138 MMOL/L (136-145)
[2018-07-21] MEDS: Albuterol ud Inhalation HHN SCH ×2 (07:50→13:00)
[2018-07-21] MEDS: Docusate 100mg cap ORAL SCH ×2 (08:08→13:23)
[2018-07-21] MEDS: Lyrica 25mg cap ORAL SCH (08:12)
[2018-07-21] MEDS: Enoxaparin 40mg Inj SUBQ SCH ×2 (08:13→09:05)
[2018-07-21] MEDS ORDERED: Lisinopril 10mg tab ORAL SCH (09:00)
--- NOTE | 2018-07-21 09:03 | General Surgery Progress Note ---
General Surgery-Progress Note Subjective Symptoms: improved, pain absent, tolerating diet, passing flatus, BM Objective Last 24 Hour Vital Signs Date Time Temp Pulse Resp B/P (MAP) Pulse Ox O2 Delivery O2 Flow Rate FiO2 07/21/18 08:11 90 172/90 07/21/18 08:08 172/90 07/21/18 08:00 72 18 100 Room Air 21 07/21/18 08:00 98.2 73 20 172/90 (117) 100 98.2 07/21/18 07:50 67 18 98 Room Air 21 07/21/18 05:00 66 141/84 (103) 07/21/18 04:01 173/89 07/21/18 04:00 98.9 71 18 173/89 (117) 100 98.9 07/21/18 01:00 72 157/73 (101) 07/21/18 00:01 168/73 07/21/18 00:00 98.6 78 18 168/73 (104) 97 98.6 07/20/18 21:00 Room Air 07/20/18 20:00 98.6 65 20 147/69 (95) 95 98.6 07/20/18 20:00 76 20 100 Room Air 21 07/20/18 19:59 74 20 98 Room Air 21 07/20/18 17:30 79 158/79 (105) 07/20/18 16:51 163/82 07/20/18 16:00 97.7 66 18 169/74 (105) 97 97.7 07/20/18 13:00 Room Air 21 07/20/18 13:00 Room Air 21 07/20/18 12:00 98.0 71 20 124/70 (88) 98 98.0 I&O Intake and Output 07/20/18 07/21/18 19:00 07:00 Intake Total 500 ml 905 ml Output Total 0 ml Balance 500 ml 905 ml Intake Oral 450 ml 200 ml IV Total 50 ml 705 ml Stool Total 0 ml # Voids 3 3 # Bowel Movements 1 Dressing: dry Wound: clean, dry, intact Drains: none Cardiovascular: RSR Respiratory: clear Abdomen: soft, flat, non-tender, present bowel sounds Extremities: no tenderness, no cyanosis Laboratory Tests Test 07/21/18 05:50 White Blood Count 7.2 K/UL (4.8-10.8) Red Blood Count 3.40 M/UL (4.20-5.40) L Hemoglobin 9.5 G/DL (12.0-16.0) L Hematocrit 29.6 % (37.0-47.0) L Mean Corpuscular Volume 87 FL (80-99) Mean Corpuscular Hemoglobin 27.9 PG (27.0-31.0) Mean Corpuscular Hemoglobin Concent 32.1 G/DL (32.0-36.0) Red Cell Distribution Width 13.8 % (11.6-14.8) Platelet Count 271 K/UL (150-450) Mean Platelet Volume 6.5 FL (6.5-10.1) Neutrophils (%) (Auto) 77.6 % (45.0-75.0) H Lymphocytes (%) (Auto) 12.5 % (20.0-45.0) L Monocytes (%) (Auto) 6.8 % (1.0-10.0) Eosinophils (%) (Auto) 2.7 % (0.0-3.0) Basophils (%) (Auto) 0.5 % (0.0-2.0) Sodium Level 138 MMOL/L (136-145) Potassium Level 4.1 MMOL/L (3.5-5.1) Chloride Level 107 MMOL/L (98-107) Carbon Dioxide Level 29 MMOL/L (21-32) Anion Gap 2 mmol/L (5-15) L Blood Urea Nitrogen 9 mg/dL (7-18) Creatinine 0.6 MG/DL (0.55-1.30) Estimat Glomerular Filtration Rate > 60 mL/min (>60) Glucose Level 115 MG/DL (74-106) H Calcium Level 10.5 MG/DL (8.5-10.1) H Phosphorus Level 2.9 MG/DL (2.5-4.9) Magnesium Level 1.7 MG/DL (1.8-2.4) L Total Bilirubin 0.3 MG/DL (0.2-1.0) Aspartate Amino Transf (AST/SGOT) 10 U/L (15-37) L Alanine Aminotransferase (ALT/SGPT) 7 U/L (12-78) L Alkaline Phosphatase 101 U/L (46-116) Total Protein 6.5 G/DL (6.4-8.2) Albumin 2.3 G/DL (3.4-5.0) L Globulin 4.2 g/dL Albumin/Globulin Ratio 0.5 (1.0-2.7) L Plan Problems: (1) Pressure injury of sacral region, stage 4 Assessment & Plan: 62F with stage IV full thickness pressure injury to sacral area. (L)0.4cm x(W)0.9cm x (D)0.6cm . (+)Epibole ,(+) maceration. Minimal sanguineous exudate noted. Periwound scarring with skin hyperpigmentation. no Odor Per history obtained from pt wound is a historical stage four pressure injury x15 years with recurrent openings over the years. Pt stated she has had NPWT therapy in the past for closure and also skin graft/ flap. Right knee immobilizer with prior surgical sutures noted R knee and incision is well approximated,clean and dry Wounds present on admission. Seems to have good care prior and currently stable. -No acute surgical intervention indicated. -Cleanse sacral wound with Saline.Pat dry.Apply Cavilon wipes to borders and periwound .Apply Triad to wound and cover with B[place]ain drsg. apply silver nitrate daily for 3 days. -Surface support mat on bed . -Encourage and assist pt to reposition side to side at least every 2hours as tolerated. -right knee sutures removed at bedside today. sutures in place for over 3 weeks and wound well healed without complication. wound clean, dry, intact. -cont knee immobilizer until cleared by her ortho surgeon -pt/to -limited weight bearing until cleared by her ortho surgeon but should not be bed bound -okay to d/c from surgical standpoint -f/u with ortho as outpatient -sacral wound care cont as outpatient as before thank you for this consultation. Eliot Baig Jul 21, 2018 09:03
--- NOTE | 2018-07-21 10:06 | Nephrology Progress Note ---
Assessment/Plan Problem List: (1) Sepsis (2) Pressure injury of sacral region, stage 4 (3) Acute encephalopathy (4) Electrolyte abnormality (5) Anemia of chronic disease (6) Proteinuria Assessment (1) HCAP (healthcare-associated pneumonia) Assessment & Plan: with B/L interstitial infiltrates, S/P meropenem , and vancomycin , no blood cultures was not done when I ordered it initially , neither urine culture . monitor clinically, continue cefazolin as planned before till 08/04/18. continue local PICC line care and dressings changes weekly (2) Pressure injury of sacral region, stage 4 Assessment & Plan: with no evidence of underlying osteomyelitis or soft tissue abscess as per MRI of the sacrum , may benefit from skin flap in the future . continue local wound care as per hospital protocol . follow up with plastic surgery DC postponed due to logistic reasons will adjust BP meds- Encephalopathy clearing Electrolyte abnormalities Proteinuria ? Line sepsis, Picc line left upper arm stage 4 decub Basal Atx: Pneumonia Obese Anemia HTN ?DM recent right knee surgery PCN Allergy I Plan IV Fluid mag and K supplement as needed off antibiotics- pain meds hold mind altering meds: [place] Robaxin BP control HgbA1c and TSH and lipids results noted Per orders ID eval appreciated St eval: Rec PO to be started HHN plan to DC Subjective ROS Limited/Unobtainable: No Objective Objective Last 24 Hour Vital Signs Date Time Temp Pulse Resp B/P (MAP) Pulse Ox O2 Delivery O2 Flow Rate FiO2 07/21/18 09:14 147/78 07/21/18 09:11 75 2 147/78 (101) 07/21/18 08:11 90 172/90 07/21/18 08:08 172/90 07/21/18 08:00 72 18 100 Room Air 21 07/21/18 08:00 98.2 73 20 172/90 (117) 100 98.2 07/21/18 07:50 67 18 98 Room Air 21 07/21/18 05:00 66 141/84 (103) 07/21/18 04:01 173/89 07/21/18 04:00 98.9 71 18 173/89 (117) 100 98.9 07/21/18 01:00 72 157/73 (101) 07/21/18 00:01 168/73 07/21/18 00:00 98.6 78 18 168/73 (104) 97 98.6 07/20/18 21:00 Room Air 07/20/18 20:00 98.6 65 20 147/69 (95) 95 98.6 07/20/18 20:00 76 20 100 Room Air 21 07/20/18 19:59 74 20 98 Room Air 21 07/20/18 17:30 79 158/79 (105) 07/20/18 16:51 163/82 07/20/18 16:00 97.7 66 18 169/74 (105) 97 97.7 07/20/18 13:00 Room Air 21 07/20/18 13:00 Room Air 21 07/20/18 12:00 98.0 71 20 124/70 (88) 98 98.0 Intake and Output 07/20/18 07/21/18 19:00 07:00 Intake Total 500 ml 905 ml Output Total 0 ml Balance 500 ml 905 ml Intake Oral 450 ml 200 ml IV Total 50 ml 705 ml Stool Total 0 ml # Voids 3 3 # Bowel Movements 1 Current Medications Medications (Trade) Dose Ordered Sig/Dave Route PRN Reason Start Time Stop Time Status Last Admin Dose Admin Acetaminophen (Tylenol) 650 mg Q4H PRN ORAL Mild Pain/Temp > 100.5 07/18/18 12:15 08/17/18 12:14 Acetaminophen/ Hydrocodone Bitart ([place] 5/325) 1 tab Q4H PRN ORAL Moderate Pain (Pain Scale 4-6) 07/18/18 12:15 07/25/18 12:14 07/21/18 09:05 Albuterol Sulfate (Proventil) 2.5 mg TIDRT HHN 07/17/18 13:00 07/22/18 12:59 07/21/18 07:50 Amlodipine Besylate (Norvasc) 10 mg DAILY ORAL 07/17/18 09:00 08/16/18 08:59 07/21/18 08:11 Cefazolin Sodium 50 ml @ 100 mls/hr Q8HR IV 07/20/18 14:00 07/27/18 13:59 07/21/18 05:50 Chlorhexidine Gluconate (Mila-Hex 2%) 1 applic DAILY@2000 TOPIC 07/17/18 20:00 08/16/18 19:59 07/20/18 20:52 Clonidine HCl (Catapres Tab) 0.1 mg Q4H PRN ORAL bp over 160 syst 07/16/18 17:15 08/15/18 17:14 07/21/18 08:08 Docusate Sodium (Colace) 100 mg THREE TIMES A DAY ORAL 07/16/18 18:00 08/15/18 17:59 07/21/18 08:08 Enoxaparin Sodium (Lovenox) 40 mg DAILY SUBQ 07/17/18 15:00 08/16/18 14:59 07/21/18 09:05 Folic Acid (Folate) 2 mg DAILY ORAL 07/17/18 09:00 08/16/18 08:59 07/21/18 08:11 Lisinopril (Zestril) 10 mg DAILY ORAL 07/21/18 09:00 08/20/18 08:59 07/21/18 09:14 Ondansetron HCl (Zofran) 4 mg Q6H PRN IVP Nausea & Vomiting 07/16/18 17:15 08/15/18 17:14 Pantoprazole (Protonix) 40 mg DAILY ORAL 07/19/18 09:00 08/18/18 08:59 07/21/18 08:08 Pregabalin (Lyrica) 50 mg BID ORAL 07/21/18 18:00 08/20/18 17:59 Temazepam (Restoril) 7.5 mg HSPRN PRN ORAL Insomnia 07/16/18 17:15 07/23/18 17:14 07/19/18 01:59 Laboratory Tests 07/21/18 05:50: White Blood Count 7.2, Red Blood Count 3.40L, Hemoglobin 9.5L, Hematocrit 29.6L , Mean Corpuscular Volume 87, Mean Corpuscular Hemoglobin 27.9, Mean Corpuscular Hemoglobin Concent 32.1, Red Cell Distribution Width 13.8, Platelet Count 271, Mean Platelet Volume 6.5, Neutrophils (%) (Auto) 77.6H, Lymphocytes ( %) (Auto) 12.5L, Monocytes (%) (Auto) 6.8, Eosinophils (%) (Auto) 2.7, Basophils (%) (Auto) 0.5, Sodium Level 138, Potassium Level 4.1, Chloride Level 107, Carbon Dioxide Level 29, Anion Gap 2L, Blood Urea Nitrogen 9, Creatinine 0.6, Estimat Glomerular Filtration Rate > 60, Glucose Level 115H, Calcium Level 10.5H, Phosphorus Level 2.9, Magnesium Level 1.7L, Total Bilirubin 0.3, Aspartate Amino Transf (AST/SGOT) 10L, Alanine Aminotransferase (ALT/SGPT) 7L, Alkaline Phosphatase 101, Total Protein 6.5, Albumin 2.3L, Globulin 4.2, Albumin /Globulin Ratio 0.5L Height (Feet): 5 Height (Inches): 8.00 Weight (Pounds): 260 General Appearance: no apparent distress Cardiovascular: normal rate Respiratory/Chest: lungs clear Abdomen: soft Objective no change Roe Mcghee MD Jul 21, 2018 10:06
--- NOTE | 2018-07-21 11:38 | Pulmonology Progress Note ---
Assessment/Plan Problems: (1) Sepsis (2) Altered mental status (3) Pressure injury of sacral region, stage 4 (4) Proteinuria (5) UTI (urinary tract infection) (6) Diabetes mellitus (7) HTN (hypertension) Assessment/Plan dong better afebrile all reviewed start Venofer IV improving continue abx check cultures respiratory treatment titrate fio2 to sat of 92% dvt prophylaxis monitor BP Subjective ROS Limited/Unobtainable: No Constitutional: Reports: no symptoms HEENT: Repors: no symptoms Allergies: Coded Allergies: PENICILLINS (Verified Allergy, Intermediate, 07/16/18) Objective Last 24 Hour Vital Signs Date Time Temp Pulse Resp B/P (MAP) Pulse Ox O2 Delivery O2 Flow Rate FiO2 07/21/18 09:14 147/78 07/21/18 09:11 75 2 147/78 (101) 07/21/18 09:00 Room Air 07/21/18 08:11 90 172/90 07/21/18 08:08 172/90 07/21/18 08:00 72 18 100 Room Air 21 07/21/18 08:00 98.2 73 20 172/90 (117) 100 98.2 07/21/18 07:50 67 18 98 Room Air 21 07/21/18 05:00 66 141/84 (103) 07/21/18 04:01 173/89 07/21/18 04:00 98.9 71 18 173/89 (117) 100 98.9 07/21/18 01:00 72 157/73 (101) 07/21/18 00:01 168/73 07/21/18 00:00 98.6 78 18 168/73 (104) 97 98.6 07/20/18 21:00 Room Air 07/20/18 20:00 98.6 65 20 147/69 (95) 95 98.6 07/20/18 20:00 76 20 100 Room Air 21 07/20/18 19:59 74 20 98 Room Air 21 07/20/18 17:30 79 158/79 (105) 07/20/18 16:51 163/82 07/20/18 16:00 97.7 66 18 169/74 (105) 97 97.7 07/20/18 13:00 Room Air 21 07/20/18 13:00 Room Air 21 07/20/18 12:00 98.0 71 20 124/70 (88) 98 98.0 Intake and Output 07/20/18 07/21/18 19:00 07:00 Intake Total 500 ml 905 ml Output Total 0 ml Balance 500 ml 905 ml Intake Oral 450 ml 200 ml IV Total 50 ml 705 ml Stool Total 0 ml # Voids 3 3 # Bowel Movements 1 General Appearance: WD/WN HEENT: normocephalic, atraumatic Respiratory/Chest: chest wall non-tender, lungs clear Cardiovascular: normal peripheral pulses, normal rate Abdomen: normal bowel sounds, soft, non tender Extremities: no cyanosis Skin: no rash 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 normal, normal mood/affect Laboratory Tests 07/21/18 05:50: White Blood Count 7.2, Red Blood Count 3.40L, Hemoglobin 9.5L, Hematocrit 29.6L , Mean Corpuscular Volume 87, Mean Corpuscular Hemoglobin 27.9, Mean Corpuscular Hemoglobin Concent 32.1, Red Cell Distribution Width 13.8, Platelet Count 271, Mean Platelet Volume 6.5, Neutrophils (%) (Auto) 77.6H, Lymphocytes ( %) (Auto) 12.5L, Monocytes (%) (Auto) 6.8, Eosinophils (%) (Auto) 2.7, Basophils (%) (Auto) 0.5, Sodium Level 138, Potassium Level 4.1, Chloride Level 107, Carbon Dioxide Level 29, Anion Gap 2L, Blood Urea Nitrogen 9, Creatinine 0.6, Estimat Glomerular Filtration Rate > 60, Glucose Level 115H, Calcium Level 10.5H, Phosphorus Level 2.9, Magnesium Level 1.7L, Total Bilirubin 0.3, Aspartate Amino Transf (AST/SGOT) 10L, Alanine Aminotransferase (ALT/SGPT) 7L, Alkaline Phosphatase 101, Total Protein 6.5, Albumin 2.3L, Globulin 4.2, Albumin /Globulin Ratio 0.5L Current Medications Medications (Trade) Dose Ordered Sig/Dave Route PRN Reason Start Time Stop Time Status Last Admin Dose Admin Acetaminophen (Tylenol) 650 mg Q4H PRN ORAL Mild Pain/Temp > 100.5 07/18/18 12:15 08/17/18 12:14 Acetaminophen/ Hydrocodone Bitart ([employer] 5/325) 1 tab Q4H PRN ORAL Moderate Pain (Pain Scale 4-6) 07/18/18 12:15 07/25/18 12:14 07/21/18 09:05 Albuterol Sulfate (Proventil) 2.5 mg TIDRT HHN 07/17/18 13:00 07/22/18 12:59 07/21/18 07:50 Amlodipine Besylate (Norvasc) 10 mg DAILY ORAL 07/17/18 09:00 08/16/18 08:59 07/21/18 08:11 Cefazolin Sodium 50 ml @ 100 mls/hr Q8HR IV 07/20/18 14:00 07/27/18 13:59 07/21/18 05:50 Chlorhexidine Gluconate (Mila-Hex 2%) 1 applic DAILY@2000 TOPIC 07/17/18 20:00 08/16/18 19:59 07/20/18 20:52 Clonidine HCl (Catapres Tab) 0.1 mg Q4H PRN ORAL bp over 160 syst 07/16/18 17:15 08/15/18 17:14 07/21/18 08:08 Docusate Sodium (Colace) 100 mg THREE TIMES A DAY ORAL 07/16/18 18:00 08/15/18 17:59 07/21/18 08:08 Enoxaparin Sodium (Lovenox) 40 mg DAILY SUBQ 07/17/18 15:00 08/16/18 14:59 07/21/18 09:05 Folic Acid (Folate) 2 mg DAILY ORAL 07/17/18 09:00 08/16/18 08:59 07/21/18 08:11 Lisinopril (Zestril) 10 mg DAILY ORAL 07/21/18 09:00 08/20/18 08:59 07/21/18 09:14 Ondansetron HCl (Zofran) 4 mg Q6H PRN IVP Nausea & Vomiting 07/16/18 17:15 08/15/18 17:14 Pantoprazole (Protonix) 40 mg DAILY ORAL 07/19/18 09:00 08/18/18 08:59 07/21/18 08:08 Pregabalin (Lyrica) 50 mg BID ORAL 07/21/18 18:00 08/20/18 17:59 Temazepam (Restoril) 7.5 mg HSPRN PRN ORAL Insomnia 07/16/18 17:15 07/23/18 17:14 07/19/18 01:59 Jameson Salcedo MD Jul 21, 2018 11:38
[2018-07-21] MEDS ORDERED: Iron Sucrose 100 MG in NS 55 ML IV ONE (13:00)
[2018-07-21] MEDS ORDERED: Lyrica 50mg cap ORAL SCH (18:00)
--- NOTE | 2018-07-23 13:11 | Discharge Summary ---
Discharge Summary Discharge Summary _ DATE OF ADMISSION: 07/16/2018 DATE OF DISCHARGE: 07/21/2018 REASON FOR ADMISSION: 62-year-old female with past medical history of hypertension, diabetes, recent right knee surgery status post antibiotic for related infection, sacral decubitus stage IV present on admission , PICC line, resident of nursing home facility, was sent for evaluation of altered level of consciousness to [facility]. After initial evaluation in the emergency room, the patient was initially diagnosed with an underlying infection, possibly UTI and subsequently transferred to [facility] for further management. The patient was very confused and unable to provide any history. Patient admitted with diagnoses of acute encephalopathy, sepsis ,possible UTI, possible pneumonia, sacral decubitus ulcer stage IV present on admission, anemia , hypertension, diabetes mellitus, recent right knee surgery. CONSULTANTS: pulmonary Dr. Salcedo ID specialist Dr. Kong surgery Dr. Baig [facility] COURSE: Patient admitted and started on gentle IV hydration. Patient initially kept nothing by mouth. Patient started on empiric antibiotics. Patient was off all mind altering medications. ID specialist closely followed . Blood culture were negative. Urine culture was not sent. P Patient was on antibiotics as per ID recommendations. Chest x-ray revealed cardiomegaly and bilateral interstitial congestion. MRI of the sacral region revealed no evidence of acute osteomyelitis , but showed soft tissue edema. Probably mild fecal impaction. Degenerative disc disease at L4-L5 , probably causing mild spinal stenosis. Wound care provided as per surgeon's recommendation for stage IV sacral pressure ulcer, present on admission. Supplemental oxygen provided as needed to keep pulse oximetry above 92%. Pulmonary toilet provided as needed. Antitussive provided as needed. Swallow evaluation was done, and diet was provided as per speech therapist recommendation with strict aspiration/ reflux precautions. TSH within normal limits. Lipid panel revealed elevated LDL and total cholesterol. Consider starting statin at the facility. Hemoglobin and hematocrit were closely monitored with goal to keep hemoglobin above 7. Anemia workup was consistent with anemia of chronic disease and folate deficiency. No need for transfusion. Prior to discharge hemoglobin 9.5, hematocrit 29.6. Patient started on folic acid supplement. Iron panel revealed low iron. Patient was given one dose of IV iron. [id number]-[id number]. TSH within normal limits. Renal parameters and electrolytes were closely monitored, electrolytes replaced as needed, nephrotoxins were avoided. Renal parameters remained stable. Supportive care provided. Bowel regimen instituted. DVT, GI prophylaxis provided. Patient was working with physical and occupational therapists. Patient clinically stabilized and was ready for discharge back to nursing home facility for continuation of care. FINAL DIAGNOSES: Acute encephalopathy likely secondary to infection Sepsis Healthcare associated pneumonia Probable UTI Hypertension Anemia of chronic disease Diabetes mellitus Electrolyte abnormalities Folate deficiency Hypercholesterolemia Proteinuria Stage IV sacral decubitus ulcer, present on admission DISCHARGE MEDICATIONS: See Medication Reconciliation list. DISCHARGE INSTRUCTIONS: Patient was discharged to the nursing home facility. Follow up with medical doctor at the facility. I have been assigned to dictate discharge summary for this account. I was not involved in the patient's management. Julianne Ellison NP Jul 23, 2018 13:11
== END 2018-07-21 13:55 | DRG 871 ==
LOC: 4E 14:35 → 3E 07-19 14:46
DX: A41.9 Sepsis, unspecified organism (principal); L89.154 Pressure ulcer of sacral region, stage 4; J18.9 Pneumonia, unspecified organism; N39.0 Urinary tract infection, site not specified; Y95 Nosocomial condition; E11.9 Type 2 diabetes mellitus without complications; Z88.0 Allergy status to penicillin; I10 Essential (primary) hypertension; M51.36 Other intervertebral disc degeneration, lumbar region; D63.8 Anemia in other chronic diseases classified elsewhere; E87.8 Other disorders of electrolyte and fluid balance, not elsewhere classified; E53.8 Deficiency of other specified B group vitamins; E78.00 Pure hypercholesterolemia, unspecified
CPT/HCPCS: 36415; 71045; 72195; 80053; 80061; 81001; 82607; 82728; 82746; 82962; 82977; 83036; 83540; 83550; 83735; 83880; 84100; 84443; 84550; 85025; 85651; 86140; 87040; 94640; 94664; J2430; J8499